=== PATIENT | male | born 2000 ===

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

== ENCOUNTER 2021-12-26 08:06 | Outpatient (REF) | payer MEDICARE, MEDICAID, SELFPAY ==
[2021-12-26 09:23] LABS: Estimated Average Glucose 91 mg/dL; Hemoglobin A1c % 4.8 %
[2021-12-26 09:25] LABS: Cholesterol 99 mg/dL; HDL Cholesterol 35 mg/dL; LDL Cholesterol Calculated 54 mg/dl; Triglycerides 51 mg/dL
== END 2021-12-26 08:07 | disposition home or self-care (01) ==
LOC: HO.LAB 08:06
PROVIDERS: PCP Physician Assistant; Visit Provider Psychiatry & Neurology Psychiatry
DX: Z79.899 Other long term (current) drug therapy (principal)
CPT/HCPCS: 36415; 80061; 83036

== ENCOUNTER 2022-04-27 10:04 | Emergency (ER) | payer MEDICARE, MEDICAID, SELFPAY ==
[2022-04-27 10:10] VITALS: BP 125/64; PULSE 84; RESP 18; TEMP 37.1; O2SAT 97; BMI 25.0
[2022-04-27 10:32] LABS: IDNOW Serial# 08D9AD1C; Strep A Nucleic Acid Negative (Negative)
--- NOTE | 2022-04-27 10:37 | ED_ITS ---
HPI - General Adult General Chief complaint: General Medical Stated complaint: Diff swallowing Time Seen by Provider: 04/27/22 10:21 Source: patient Mode of arrival: ambulatory History of Present Illness HPI narrative: 21-year-old male with no significant past medical history presenting to the ED complaining of sore throat and painful swallowing x2 weeks with suspected tonsil stones. Patient states he has been picking at tonsil stones to extract them. Reports associated chills. Denies fever, inability/difficulty swallowing, ear pain, cough, SOB Onset (ago): week(s) Related Data Home Medications Medication Instructions Recorded Confirmed quetiapine 200 mg tablet 200 mg PO BEDTIME 02/26/20 10/04/21 Previous Rx's Medication Instructions Recorded ofloxacin 0.3 % ear drops 10 drp otic (ear) left DAILY 10 10/04/21 days #10 mL amoxicillin 500 mg capsule 500 mg PO BID #14 caps 04/28/22 Allergies Allergy/AdvReac Type Severity Reaction Status Date / Time No Known Allergies Allergy Verified 04/28/22 11:17 Review of Systems Review of Systems: Constitutional: No Fever, No Chills ENT/Mouth: No Ear Pain, No Nasal Congestion, No Sinus Pain, No Hoarseness, + sore throat, No Rhinorrhea, No Swallowing Difficulty Cardiovascular: No Chest Pain, No SOB Respiratory: No Cough, No Sputum Gastrointestinal: No Nausea, No Vomiting, No Diarrhea, No Constipation, No Abdominal pain Musculoskeletal: No joint pain, No Myalgias, No Joint Swelling Skin: No Skin Lesions, No rash Neuro: No Weakness Yes all other systems are reviewed and are negative Constitutional: Constitutional: Reports as per [facility] Past Medical History Attestation statement: The following information was validated with the patient. Medical History No known health problems Surgical History No pertinent past surgical history Family History Family History Father No problems noted. Social History Social History Household Members: Family Patient Tobacco Use Status: Never used Tobacco e-Cigarette/Vaping Use: Never Used Physical Exam ED Vital Signs: Vital Signs - 24 hr 04/27/22 10:10 Temperature 98.8 F Pulse Rate 84 Respiratory Rate 18 Blood Pressure 125/64 Pulse Oximetry 97 Oxygen Delivery Method Room Air BMI result Body Mass Index 25.0 Const General: cooperative, healthy appearing and no acute distress Orientation/consciousness: patient oriented x3 Limitations: no limitations HENMT Head: Yes normal to inspection and Yes atraumatic Ears: hearing grossly normal bilaterally, external ears normal, TM's normal bilaterally and mastoids normal General nose exam: Normal external nose present Face and sinus: Yes normal facial exam Mouth: Normal oral and palatal mucosa present Throat: Yes posterior oropharynx normal, Yes tonsils normal, Yes uvula midline, No abnormal tonsil, No peritonsillar mass, No uvula laterally displaced and No uvular edema Eyes General: appearance normal, both eyes and all related structures EOM: EOMs intact bilaterally Neck Neck: Yes normal visual inspection, Yes full ROM, Yes no lymphadenopathy and Yes no meningeal signs Resp Effort & Inspection: normal respiratory effort, no grunting, not labored, no respiratory distress and no stridor Cardio Rate: regular rate Heart sounds: S1 normal heart sound present and S2 normal heart sound present Skin Rashes: no rashes Wounds: no wounds Neuro General: patient oriented x3, tone normal and no meningeal signs Gait exam (Neuro): Normal gait present Extrem General: Yes normal to inspection Course Course Course Narrative: Results discussed with patient including worrisome signs and symptoms and strict return precautions, and when to return to the emergency department. They verbalized understanding and feel safe for discharge at this time. Medical Decision Making Medical Decision Making [facility] Narrative: 21-year-old male with no significant past medical history presenting to the ED complaining of sore throat and painful swallowing x2 weeks with suspected tonsil stones. On exam vital signs stable, NAD, nontoxic appearing, oropharynx WNL, tonsils without noted erythema, exudate, or tonsil stones. Uvula midline. Co ncern for pharyngitis vs previous tonsil stones. 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 Differential Diagnosis Differential Diagnoses: The differential diagnosis associated with the presentation includes As above Admission/Observation Consideration of admission/observation: Escalation of care including admission/observation considered Lab Data MDM Lab Attestation statement: I reviewed the patient's lab results. Labs: Lab Results 04/27/22 Range/Units 10:17 S. pyogenes GrpA JACQUES Negative (Negative) Radiology Impression Discussion of test interpretation with radiology: I have reviewed the radiologist's reading. External Record Review External record reviewed: Inpatient record, Office record, Outpatient record, Prior outpatient labs, Prior outpatient radiology, Primary care record and Outside ED record Discharge Plan Discharge Clinical Impression: Pharyngitis Patient Disposition: Home, Self-Care Instructions: Pharyngitis (ED) Additional Instructions: You tested negative for strep throat There is no appreciable tonsil stones today Follow up with your doctor and ENT as needed If symptoms persist or worsening of oral swelling, difficulty or inability to swallow return to the ED Prescriptions: No Action quetiapine 200 mg tablet 200 mg PO BEDTIME ofloxacin 0.3 % drops 10 drp otic (ear) left DAILY 10 Days Qty: 10 0RF amoxicillin 500 mg capsule 500 mg PO BID Qty: 14 0RF Referrals: Frantz Buchanan [Physician] - Interventions: ED Discharge Assessment Last Done: 04/27/22 11:21 Discharge Date/Time: 04/27/22 11:21
== END 2022-04-27 11:21 | disposition home or self-care (01) ==
PROVIDERS: Emergency Provider Student in an Organized Health Care Education/Training Program
DX: J02.9 Acute pharyngitis, unspecified (principal)
CPT/HCPCS: 36415; 87651; 99282; 99283

== ENCOUNTER 2022-12-15 08:57 | Outpatient (AMB) | payer MEDICARE, MEDICAID, SELFPAY ==
--- NOTE | 2022-12-15 08:59 | A.OFFPC_ITS ---
Vital Signs 12/15/22 09:01 Height 5 ft 10 in Weight 159 lb BMI 22.8 BP 120/80 Blood Pressure Location Rt brachial Position Sitting Pulse 102 H Pulse Source Pulse Oximeter Pulse Oximetry (%) 98 Oxygen Delivery Method Room Air Intake Visit Reasons: [employer]WMEMBER- requesting physical Intake Note: Patient is a new patient here to establish care for physical. Transferring care from Dr Khushbu Marx. Medical records have not been requested and have not received. Seed Core Operator Required: No Apprentice Technician: Present Accompanied by: Father Allergies No Known Allergies Allergy (Verified 12/15/22 09:18) Medication List - Last Reconciled 12/15/22 by MARCIANO Enciso quetiapine 200 mg PO BEDTIME Tobacco use date assessed: 12/15/22 Dental Screening Dental Screen Date: 12/15/22 Did you have a dental visit in the last 12 months?: Yes Did you have a dental problem in the last 6 months where you did not have access to dental care?: No Was dental information given to patient?: Patient has dentist HPI [employer]ISS[employer]WMEMBER- requesting physical HPI Details Patient is a 22-year-old male who presents today for physical exam as a new patient. Previous PCP Dr. Herrera with [facility], last visit about 1 year ago. Patient is accompanied by his father. Medical history significant for insomnia which is followed by Psychiatry and counseling at [facility]. Dentist up-to-date. Patient reports eye exam 2 years ago. Due for tetanus vaccine. No concerns. [facility] Medical History Acute erythematous tonsillitis Acute infective otitis externa of left ear No known health problems Surgical History No pertinent past surgical history Family History Father No problems noted. Social History Household Members: Family Housing: Apartment Alcohol intake: never Patient Tobacco Use Status: Never used Tobacco e-Cigarette/Vaping Use: Never Used Second Hand Smoke Exposure: No service: No Current occupational status: unemployed Cognitive needs: No Hearing needs: No Vision needs: No Questionnaire PHQ-9 Over the last 2 weeks, how often have you been bothered by any of the following problems? 1. Little interest or pleasure in doing things: not at all 2. Feeling down, depressed, or hopeless: not at all 3. Trouble falling or staying asleep, or sleeping too much: not at all 4. Feeling tired or having little energy: not at all 5. Poor appetite or overeating: not at all 6. Feeling bad about yourself - or that you are a failure or have let yourself or your family down: not at all 7. Trouble concentrating on things, such as reading the newspaper or watching television: not at all 8. Moving or speaking so slowly that other people could have noticed. Or the opposite - being so fidgety or restless that you have been moving around a lot more than usual: not at all 9. Thoughts that you would be better off or of hurting yourself in some way: not at all Total score: 0 Depression Screening Interpretation: Negative Depression Screening Done: Yes 15110 - PHQ-9 Billing: Yes Source: Developed by Drs. Ja Sellers, Janice Herrera, Domingo Burris and colleagues, with an educational pippa from [employer]. Thrive Questionnaire Date Thrive assessed: 12/15/22 I am a: Patient What is your living situation today?: I have a steady place to live Within the past 12 months, did the food you bought not last and you didn't have the money to get more?: Never true Within the past 12 months, did you worry whether your food would run out before you got money to buy more?: Never true Do you have trouble paying for medicines?: No Do you have trouble getting transportation to medical appointments?: No Do you have trouble paying your heating and electricity bill?: No Do you have trouble taking care of your child, family member or friend?: No Do you have trouble with day-to-day activities such as bathing, preparing meals, shopping, managing finances, etc.?: No Are you currently unemployed and looking for a job?: No Are you interested in more education?: No Currently or been in a relationship where the following occur: no concerns reported AUDIT C Alcohol Use Questionnaire (AUDIT-C) 1. How often do you have a drink containing alcohol?: Never Total Score: 0 Score Reviewed/Action Taken: No MAMADOU-7 AMB Questionnaire MAMADOU-7 Date MAMADOU - 7 assessed: 12/15/22 Feeling nervous, anxious, or on edge: 0 = Not at all Not being able to stop or control worryin = Not at all Worrying too much about different things: 0 = Not at all Trouble relaxin = Not at all Being so restless that it is hard to sit still: 0 = Not at all Becoming easily annoyed or irritable: 0 = Not at all Feeling afraid as if something awful might happen: 0 = Not at all Total MAMADOU-7 score (0-4 normal; 5-9 mild; 10-14 moderate; 15-21 severe): 0 Source: Developed by Drs. Ja Sellers, Janice Herrera, Domingo Burris and colleagues, with an educational pippa from [employer]. MAMADOU-7 Assessment Billing MAMADOU-7 Assessment Tool: MAMADOU-7 Assessment 47595 Review of Systems Const Denies body aches, Denies chills, Denies fever(s) and Denies headache(s) Eyes Denies change in vision ENT Denies dizziness, Denies otalgia, Denies headache(s), Denies nasal discharge, Denies sinus pain and Denies sore throat Card Denies chest pain, Denies edema, Denies lightheadedness and Denies dyspnea Resp Denies cough, Denies dyspnea and Denies wheezing GI Denies abdominal pain, Denies constipation, Denies diarrhea, Denies nausea and Denies vomiting Denies dysuria Musc Denies myalgias Skin/Breast Denies rash Neuro Denies dizziness and Denies headache(s) Aller/Immun Denies wheezing Physical exam (Primary Care) Vital Signs: Last Vital Signs Pulse 102 H 12/15/22 09:01 BP 120/80 12/15/22 09:01 Pulse Ox 98 12/15/22 09:01 Oxygen Delivery Method Room Air 12/15/22 09:01 BMI result Body Mass Index 22.8 Tobacco/Smoking Status: Tobacco use Status Tobacco use date assessed 12/15/22 12/15/22 09:09 Patient Tobacco Use Status Never used Tobacco 12/15/22 09:09 e-Cigarette/Vaping Use Never Used 12/15/22 09:09 PHQ-9: PHQ-9 Score PHQ-9: Total score 0 12/15/22 09:31 Depression Screening Interpretation: Negative Thrive Assessment: Date of Thrive Assessment Date Thrive assessed 12/15/22 12/15/22 09:09 Currently or been in a relationship where the following occur: no concerns reported Const General: cooperative and no acute distress Orientation/consciousness: patient oriented x3 HENMT Head: Yes normocephalic and Yes atraumatic Ears: TM's normal bilaterally Face and sinus: Yes sinuses nontender Mouth: oropharynx normal and moist mucous membranes Throat: Yes posterior oropharynx normal Eyes General: appearance normal, both eyes and all related structures Pupils: Equal, round and reactive pupils present EOM: EOMs intact bilaterally Neck Neck: Yes normal visual inspection, Yes full ROM and Yes no lymphadenopathy Thyroid: Thyroid normal Resp Effort & Inspection: normal respiratory effort and able to speak in complete sentences Auscultation: clear to auscultation bilaterally, no crackles, no rales, no rhonchi and no wheezes Cardio Rate: regular rate Rhythm: regular rhythm Heart sounds: S1 normal heart sound present, S2 normal heart sound present and no murmurs GI Palpation (GI): Soft to palpation, not firm, nontender, no guarding, not rigid and no hepatosplenomegaly Auscultation: normal bowel sounds General: No CVA tenderness Back/Spine/Pelvis Back: No CVA tenderness Skin General skin exam: no rashes or lesions noted Neuro General: patient oriented x3 Cranial nerves: Yes Equal, round and reactive pupils present Gait exam (Neuro): Normal gait present Extrem General: Yes full ROM and No edema Office Procedures Flu Questionnaire Does the patient have a severe egg allergy?: No Does the patient have severe life threatening allergies?: No Does the patient have a fever or illness today?: No Has the patient ever had Guillain-[place] Syndrome?: No Has the patient ever had any past reaction to a flu shot?: No Immunizations flu vacc [id number] 6mos up(PF) 60 mcg(15 mcgx4)/0.5 mL IM syringe Performing Provider: MARCIANO Enciso Performing Location: [facility] Adult Primary [facility] Administered by: RAGINI Nava on 12/15/22 09:14 Dose Route Admin Location Dispensed Lot Number Expiration Date NDC Phd Intern 0.5 mL IM Left Deltoid 0.5 mL [id number] 08/05/23 67660-480-78 GLAXOSMITHKLINE VIS Given Date VIS Provided VIS Publication Date 12/15/22 Single Vaccine 20 Eligibility Eligibility Date Funding Source Not VFC Eligible 12/15/22 Private Adacel(Tdap Adolesn/Adult)(PF) 2 Lf-(2.5-5-3-5)-5 Lf/0.5 mL IM syringe Performing Provider: MARCIANO Enciso [facility] Administered by: RAGINI Nava on 12/15/22 09:34 Dose Route Admin Location Dispensed Lot Number Expiration Date NDC Phd Intern 0.5 mL IM Right Deltoid 0.5 mL [id number] 01/10/25 [id number] GLAXOSMITHKLINE VIS Given Date VIS Provided VIS Publication Date 12/15/22 Single Vaccine 20 Eligibility Eligibility Date Funding Source Not VFC Eligible 12/15/22 State funds Assessment and Plan Assessment & Plan (1) Adult general medical exam: Code(s): Z00.00 - Encounter for general adult medical examination without abnormal findings Plan: Repeat in 1 year Blood work ordered (2) Insomnia: Code(s): G47.00 - Insomnia, unspecified Plan: On Seroquel at bedtime which is prescribed by Psychiatry at [facility] Also has counseling Orders: Orders Vitamin D 25-OH Total Today Z00.00 - Encounter for general adult medical examination without abnormal findings Influenza [id number] Immunization Today Z23 - Encounter for immunization TDaP State Immunization Today Z00.00 - Encounter for general adult medical examination without abnormal findings, Z23 - Encounter for immunization TSH reflex Free T4 Today Z00.00 - Encounter for general adult medical examination without abnormal findings Comprehensive Met. Panel Today Z00.00 - Encounter for general adult medical examination without abnormal findings Complete Blood Count Auto Diff Today Z00.00 - Encounter for general adult me dical examination without abnormal findings Coding Level of Care Code New Pt Prev Care 18-39yr(06108 Diagnoses Adult general medical exam Z00.00 Insomnia G47.00 Additional Codes MAMADOU-7 Assessment Billing - MAMADOU-7 Assessment Tool: MAMADOU-7 Assessment [id number] ([id number])
[2022-12-15 09:01] VITALS: BP 120/80; PULSE 102; O2SAT 98; BMI 22.8
== END 2022-12-15 09:37 | disposition home or self-care (01) ==
PROVIDERS: PCP Physician Assistant; Visit Provider Nurse Practitioner Family
DX: Z00.00 Encounter for general adult medical examination without abnormal findings (principal); Z23 Encounter for immunization; G47.00 Insomnia, unspecified
CPT/HCPCS: 90471; 90686; 90715; 99385

== ENCOUNTER 2023-03-27 14:04 | Outpatient (AMB) | payer MEDICARE, MEDICAID, SELFPAY ==
[2023-03-27 14:05] VITALS: BP 112/68; PULSE 84; O2SAT 98; BMI 24.0
--- NOTE | 2023-03-27 14:05 | A.OFFPC_ITS ---
Vital Signs 3 03/27/23 14:05 Height 5 ft 10 in Weight 167 lb BMI 24.0 BP 112/68 Blood Pressure Location Lt brachial Position Sitting Pulse 84 Pulse Source Pulse Oximeter Pulse Oximetry (%) 98 Oxygen Delivery Method Room Air Intake Visit Reasons: remove jose l from head Customer Service Security Officer Required: No Accompanied by: Friend Allergies No Known Allergies Allergy (Verified 03/27/23 14:26) Medication List - Last Reconciled 03/27/23 by Edson Shaw PA-C No Known Home Meds Tobacco use date assessed: 03/27/23 Dental Screening Dental Screen Date: 03/27/23 Did you have a dental visit in the last 12 months?: Yes Did you have a dental problem in the last 6 months where you did not have access to dental care?: No Was dental information given to patient?: Patient has dentist HPI remove jose l from head 2 HPI0 Details Patient is a 22-year-old male here today for a ER follow-up visit. He sustained a laceration over his head requiring a to jose l. Otherwise denies any headaches, vision issues or nausea or vomiting. [facility] Medical History Acute erythematous tonsillitis Acute infective otitis externa of left ear No known health problems Surgical History No pertinent past surgical history Family History Father No problems noted. Social History Household Members: Family Housing: Apartment Alcohol intake: never Patient Tobacco Use Status: Never used Tobacco e-Cigarette/Vaping Use: Never Used Second Hand Smoke Exposure: No service: No Current occupational status: unemployed Cognitive needs: No Hearing needs: No Vision needs: No Questionnaire PHQ-9 Over the last 2 weeks, how often have you been bothered by any of the following problems? 1. Little interest or pleasure in doing things: not at all 2. Feeling down, depressed, or hopeless: not at all 3. Trouble falling or staying asleep, or sleeping too much: not at all 4. Feeling tired or having little energy: not at all 5. Poor appetite or overeating: not at all 6. Feeling bad about yourself - or that you are a failure or have let yourself or your family down: not at all 7. Trouble concentrating on things, such as reading the newspaper or watching television: not at all 8. Moving or speaking so slowly that other people could have noticed. Or the opposite - being so fidgety or restless that you have been moving around a lot more than usual: not at all 9. Thoughts that you would be better off or of hurting yourself in some way: not at all Total score: 0 Depression Screening Interpretation: Negative Depression Screening Done: Yes 75201 - PHQ-9 Billing: Yes Source: Developed by Drs. Ja Sellers, Janice Herrera, Domingo Burris and colleagues, with an educational pippa from [employer]. Thrive Questionnaire Date Thrive assessed: 03/27/23 I am a: Patient What is your living situation today?: I have a steady place to live Within the past 12 months, did the food you bought not last and you didn't have the money to get more?: Never true Within the past 12 months, did you worry whether your food would run out before you got money to buy more?: Never true Do you have trouble paying for medicines?: No Do you have trouble getting transportation to medical appointments?: No Do you have trouble paying your heating and electricity bill?: No Do you have trouble taking care of your child, family member or friend?: No Do you have trouble with day-to-day activities such as bathing, preparing meals, shopping, managing finances, etc.?: No Are you currently unemployed and looking for a job?: No Are you interested in more education?: No Please select the resources that you would like help with: None Currently or been in a relationship where the following occur: no concerns reported THRIVE Score: 0 AUDIT C Alcohol Use Questionnaire (AUDIT-C) 1. How often do you have a drink containing alcohol?: Never 3. How often do you have six or more drinks on one occasion?: Never Total Score: 0 MAMADOU-7 AMB Questionnaire MAMADOU-7 Date MAMADOU - 7 assessed: 03/27/23 Feeling nervous, anxious, or on edge: 0 = Not at all Not being able to stop or control worryin = Not at all Worrying too much about different things: 0 = Not at all Trouble relaxin = Not at all Being so restless that it is hard to sit still: 0 = Not at all Becoming easily annoyed or irritable: 0 = Not at all Feeling afraid as if something awful might happen: 0 = Not at all Total MAMADOU-7 score (0-4 normal; 5-9 mild; 10-14 moderate; 15-21 severe): 0 Source: Developed by Drs. Ja Sellers, Janice Herrera, Domingo Burris and colleagues, with an educational pippa from [employer]. MAMADOU-7 Assessment Billing MAMADOU-7 Assessment Tool: MAMADOU-7 Assessment 75384 Review of Systems Const Denies headache(s) Eyes Denies loss of vision ENT Denies vertigo, Denies dizziness, Denies headache(s) and Denies sore throat Card Denies chest pain, Denies leg edema and Denies lightheadedness Resp Denies cough, Denies hemoptysis and Denies wheezing GI Denies abdominal pain, Denies melena, Denies constipation, Denies diarrhea and Denies vomiting Denies dysuria, Denies urinary frequency and Denies urinary urgency Musc Denies arthralgias, Denies joint swelling, Denies numbness and Denies tingling Neuro Denies Abnormal speech present, Denies behavioral changes, Denies vertigo, Denies dizziness, Denies headache(s), Denies loss of vision, Denies memory loss, Denies numbness and Denies tingling Psych Denies anxiety, Denies behavioral changes, Denies depression, Denies memory loss and Denies panic attacks Marky/Lymph Denies easy bleeding and Denies easy bruising Aller/Immun Denies wheezing Physical exam (Primary Care) Vital Signs: Last Vital Signs Pulse 84 03/27/23 14:05 BP 112/68 03/27/23 14:05 Pulse Ox 98 03/27/23 14:05 Oxygen Delivery Method Room Air 03/27/23 14:05 BMI result Body Mass Index 24.0 Tobacco/Smoking Status: Tobacco use Status Tobacco use date assessed 03/27/23 03/27/23 14:13 Patient Tobacco Use Status Never used Tobacco 03/27/23 14:07 e-Cigarette/Vaping Use Never Used 03/27/23 14:07 PHQ-9: PHQ-9 Score PHQ-9: Total score 0 03/27/23 14:08 Depression Screening Interpretation: Negative Thrive Assessment: Date of Thrive Assessment Date Thrive assessed 03/27/23 03/27/23 14:08 Currently or been in a relationship where the following occur: no concerns reported Const General: healthy appearing, no acute distress, alert and awake Nutritional Appearance: well nourished Orientation/consciousness: oriented to person, oriented to place and oriented to time [facility] Head images: 2 1. TWO JOSE L NOTED- REMOVED WITHOUT COMPLICATION Ears: TM's normal bilaterally General nose exam: Normal nasal mucous membranes and turbinates present Eyes Conjunctivae: conjunctivae normal Sclerae: sclerae normal Pupils: Equal, round and reactive pupils present Neck Neck: Yes no lymphadenopathy and Yes no JVD Thyroid: Thyroid normal Carotids: no bruits Resp Effort & Inspection: normal respiratory effort and not tachypneic Auscultation: no crackles, no rales, no rhonchi and no wheezes Cardio Rate: regular rate Rhythm: regular rhythm Heart sounds: no murmurs and normal S1 and S2 GI Palpation (GI): Soft to palpation, nontender, no hepatomegaly and no splenomegaly Auscultation: normal bowel sounds Skin General skin exam: no rashes or lesions noted and dry skin Neuro General: oriented to person, oriented to place and oriented to time Cranial nerves: Yes Equal, round and reactive pupils present Speech: No Abnormal speech present Gait exam (Neuro): Normal gait present Motor exam (neuro): no tremor noted Extrem Right upper extremity: full ROM Left upper extremity: full ROM Right lower extremity: full ROM; no edema Left lower extremity: full ROM; no edema Psych Mental Status: mental status grossly normal Speech and movement: Normal speech and movement present Affect: normal affect Attitude: cooperative Thought process: Normal thought process present Assessment and Plan Assessment & Plan (1) Removal of jose l: Code(s): Z48.02 - Encounter for removal of sutures Plan: Two jose l removed from patient's scalp without any bleeding. (2) Laceration of head: Code(s): S01.91XA - Laceration without foreign body of unspecified part of head, initial encounter Qualifiers: Encounter type: subsequent encounter Location of open wound of head: s calp Foreign body presence: without foreign body Qualified Code(s): S01.01XD - Laceration without foreign body of scalp, subsequent encounter (3) Screening for diabetes mellitus (DM): Code(s): Z13.1 - Encounter for screening for diabetes mellitus Orders: Orders 2 Comprehensive [place]. Panel Fast Today Z13.1 - Encounter for screening for diabetes mellitus Coding Level of Care Code Est Pt Level 3 (87200) Diagnoses Removal of jose l Z48.02 Laceration of scalp without foreign body, subsequent encounter S01.01XD Encounter type: subsequent encounter Location of open wound of head: scalp Foreign body presence: without foreign body Screening for diabetes mellitus (DM) Z13.1 Additional Codes MAMADOU-7 Assessment Billing - MAMADOU-7 Assessment Tool: MAMADOU-7 Assessment 57022 ([id number])
== END 2023-03-27 14:33 | disposition home or self-care (01) ==
PROVIDERS: PCP Physician Assistant; Visit Provider Physician Assistant
DX: S01.01XA Laceration without foreign body of scalp, initial encounter (principal); Z48.02 Encounter for removal of sutures; Z13.1 Encounter for screening for diabetes mellitus
CPT/HCPCS: 15853; 99213

== ENCOUNTER 2023-06-15 09:05 | Outpatient (AMB) | payer MEDICARE, MEDICAID, SELFPAY ==
[2023-06-15 09:17] VITALS: BP 124/80; PULSE 101; TEMP 36.5; O2SAT 98; BMI 26.3
--- NOTE | 2023-06-15 09:17 | AM.OFFWIN_ITS ---
Intake Vital Signs 06/15/23 09:17 Height 5 ft 10 in Weight 183 lb 6 oz BMI 26.3 BP 124/80 Blood Pressure Location Lt brachial Position Sitting Pulse 101 H Pulse Source Pulse Oximeter Temp 97.7 F Temp Source Temporal Artery Scan Pulse Oximetry (%) 98 Oxygen Delivery Method Room Air Intake Visit Reasons: EST/ ear/throat pain ([phone]) Intake Note: pt is here today for ear throat pain started 4 days ago Patient Tobacco Use Status: Never used Tobacco Allergies No Known Allergies Allergy (Verified 06/15/23 09:31) Do you need a note to return to daycare/school/sports/work: No HPI HPI Comments History of Present Illness Details This is a 22-year-old male with past medical history of insomnia presenting for evaluation of left ear pain that started 5 days ago followed by a sore throat. Patient reports subjective fevers only and has not taken any medication for treatment of his discomfort. [facility] Medical History Acute erythematous tonsillitis Acute infective otitis externa of left ear No known health problems Surgical History No pertinent past surgical history Family History Father No problems noted. Social History Household Members: Family Housing: Apartment Alcohol intake: never Patient Tobacco Use Status: Never used Tobacco e-Cigarette/Vaping Use: Never Used Second Hand Smoke Exposure: No service: No Current occupational status: unemployed Cognitive needs: No Hearing needs: No Vision needs: No Review of Systems Const All systems reviewed & are unremarkable except as noted in HPI and below Denies chills and Reports fever(s) (subjective) Eyes Reports no additional complaints ENT Reports otalgia (left), Denies sinus pain and Reports sore throat Card Reports no additional complaints Resp Reports no additional complaints Psych Reports no additional complaints Physical Exam Vital Signs: Last Vital Signs Temp 97.7 F 06/15/23 09:17 Pulse 101 H 06/15/23 09:17 BP 124/80 06/15/23 09:17 Pulse Ox 98 06/15/23 09:17 Oxygen Delivery Method Room Air 06/15/23 09:17 BMI result Body Mass Index 26.3 Patient is afebrile Const General: cooperative, healthy appearing, comfortable, no acute distress, well developed, alert and awake Nutritional Appearance: average body habitus Orientation/consciousness: patient oriented x3 Limitations: no limitations HEENT Head: Yes normal to inspection Ears: hearing grossly normal bilaterally, external ears normal, TM's abnormal bilaterally (mild erythema right TM; left TM erythematous, bulging, moderate fluid level), EAC's normal and mastoids normal General nose exam: Normal external nose present Face and sinus: Yes normal facial exam and Yes sinuses nontender Mouth: Normal oral and palatal mucosa present and moist mucous membranes Throat: Yes posterior oropharynx normal (There is no erythema, edema or exudates of the posterior oropharynx) and Yes postnasal drainage Eyes Alignment and Position: alignment normal Periorbital: periorbital findings normal Eyelids: Yes eyelids normal Conjunctivae: conjunctival abnormal bilateral conjunctival injection diffuse Pupils: Equal, round and reactive pupils present EOM: EOMs intact bilaterally Neck Lymphatic: no lymphadenopathy noted Resp Effort & Inspection: normal respiratory effort, no audible wheezes and no cough Auscultation: wheezes (expiratory wheeze right base) Cardio Rate: regular rate (92 bpm) Rhythm: regular rhythm Skin General skin exam: no rashes or lesions noted Neuro General: patient oriented x3 Cranial nerves: Yes Equal, round and reactive pupils present Psych Appearance: grossly normal Mental Status: mental status grossly normal Insight: Good insight present (Psych) Judgement: Good judgement present (Psych) Results AMB Rapid Strep AMB Rapid Strep Negative Last Edit by Jessica Barbosa CMA on 06/15/23 09:42 Results Reviewed Results Reviewed: Laboratory Last Values Strep Scn Rapid Clinic Negative 06/15/23 09:41 Assessment & Plan Assessment & Plan (1) Otitis media of left ear: Comment: Patient is seen and evaluated with his mother present. Rapid strep test is negative. Patient will be discharged home with Augmentin. Code(s): H66.92 - Otitis media, unspecified, left ear Qualifiers: Otitis media type: unspecified Qualified Code(s): H66.92 - Otitis media, unspecified, left ear Plan: Augmentin 500 mg b.i.d. x7 days. Ibuprofen or Tylenol only as needed for discomfort. Orders: Orders AMB Rapid Strep Screen Today Nataliya Padilla NP Z13.9 - Encounter for screening, unspecified Medications: New amoxicillin-pot clavulanate 500-125 mg (Augmentin) 1 tab PO BID 14 tabs 0RF Agustina Manuel PA-C Coding Level of Care Code Est Pt Level 3 (62906) Diagnoses Left otitis media, unspecified otitis media type H66.92 Otitis media type: unspecified Time Spent (min) 20
== END 2023-06-15 11:12 | disposition home or self-care (01) ==
PROVIDERS: PCP Physician Assistant; Visit Provider Physician Assistant
DX: H66.92 Otitis media, unspecified, left ear (principal); J02.9 Acute pharyngitis, unspecified
CPT/HCPCS: 87880; 99213

== ENCOUNTER → 2023-08-02 12:58 | Outpatient (AMB) | payer MEDICARE, MEDICAID, SELFPAY ==
[2023-08-02 12:59] VITALS: BP 114/72; PULSE 87; O2SAT 98; BMI 26.7
--- NOTE | 2023-08-02 12:59 | MHC.PC.OV ---
Vital Signs 08/02/23 12:59 Height 5 ft 10 in Weight 185 lb 13.595 oz BMI 26.7 BP 114/72 Blood Pressure Location Lt brachial Position Sitting Pulse 87 Pulse Source Pulse Oximeter Pulse Oximetry (%) 98 Oxygen Delivery Method Room Air Intake Visit Reasons: ear pain Intake Note: pt c/o left ear ache, discharge and itchy X1 month with no relief Statistical Clerk Required: No Allergies No Known Allergies Allergy (Verified 08/02/23 13:30) Medication List - Last Reconciled 08/02/23 by Marian Palafox PA-C ciprofloxacin-dexamethasone 0.3-0.1 % 4 drps otic (ears) BID 7 days doxycycline hyclate 100 mg PO BID 10 days quetiapine 200 mg PO BEDTIME Tobacco use date assessed: 03/27/23 Dental Screening Dental Screen Date: 03/27/23 HPI ear pain HPI Details 22 year old male with no pertinent medical history last seen in our office by SIN March 2023 coming in for a sick visit. Patient was seen in urgent care June 2023 for ear pain and diagnosed with otitis media and given Augmentin. Patient reporting excessive itching and drainage initially from the left ear but now the drainage is in both ears. Patient reports mild pain but the itchiness and drainage are the most bothersome. Shortly after taking the antibiotics the itching returned in both ears and draining which is usually green. Patient has not been swimming in lakes, pools or hot tubs. The left ear is also having decreased hearing. Denies cough, fevers, runny nose, sore throat or body aches. Denies any seasonal allergies. [facility] Medical History Acute erythematous tonsillitis Acute infective otitis externa of left ear No known health problems Surgical History No pertinent past surgical history Family History Father No problems noted. Social History Household Members: Family Housing: Apartment Alcohol intake: never Patient Tobacco Use Status: Never used Tobacco e-Cigarette/Vaping Use: Never Used Second Hand Smoke Exposure: No service: No Current occupational status: unemployed Cognitive needs: No Hearing needs: No Vision needs: No Questionnaire Thrive Questionnaire Date Thrive assessed: 03/27/23 I am a: Patient What is your living situation today?: I have a steady place to live Within the past 12 months, did the food you bought not last and you didn't have the money to get more?: Never true Within the past 12 months, did you worry whether your food would run out before you got money to buy more?: Never true Do you have trouble paying for medicines?: No Do you have trouble getting transportation to medical appointments?: No Do you have trouble paying your heating and electricity bill?: No Do you have trouble taking care of your child, family member or friend?: No Do you have trouble with day-to-day activities such as bathing, preparing meals, shopping, managing finances, etc.?: No Are you currently unemployed and looking for a job?: No Are you interested in more education?: No Please select the resources that you would like help with: None THRIVE Score: 0 AUDIT C Alcohol Use Questionnaire (AUDIT-C) 1. How often do you have a drink containing alcohol?: Never 3. How often do you have six or more drinks on one occasion?: Never Total Score: 0 MAMADOU-7 AMB Questionnaire MAMADOU-7 Date MAMADOU - 7 assessed: 03/27/23 Source: Developed by Drs. Ja Sellers, Janice Herrera, Domingo Burris and colleagues, with an educational pippa from [employer]. Review of Systems Const Denies body aches, Denies chills and Denies fever(s) Eyes Reports no additional complaints and Denies itchy eyes ENT Details: yellow/green drainage in bilateral ears with itchiness and mild pain. Decreased hearing in the left ear. Denies throat swelling Card Reports no additional complaints Resp Reports no additional complaints and Denies cough GI Reports no additional complaints Musc Denies myalgias Neuro Reports no additional complaints Aller/Immun Denies itchy eyes, Denies seasonal rhinorrhea and Denies throat swelling Physical exam (Primary Care) Vital Signs: Last Vital Signs Pulse 87 08/02/23 12:59 BP 114/72 08/02/23 12:59 Pulse Ox 98 08/02/23 12:59 Oxygen Delivery Method Room Air 08/02/23 12:59 BMI result Body Mass Index 26.7 Tobacco/Smoking Status: Tobacco use Status Tobacco use date assessed 03/27/23 08/02/23 13:00 Patient Tobacco Use Status Never used Tobacco 08/02/23 13:00 e-Cigarette/Vaping Use Never Used 08/02/23 13:00 Thrive Assessment: Date of Thrive Assessment Date Thrive assessed 03/27/23 08/02/23 13:00 Const General: cooperative, healthy appearing, comfortable and no acute distress Nutritional Appearance: average body habitus Orientation/consciousness: patient oriented x3 Limitations: no limitations HENMT Other: Crusting drainage in the left ear canal and on the external ear. Right TM and ear canal are erythematous. Left ear canal is erythematous with purulent fluid behind left TM. Mild tenderness to left tragus and no tenderness to pinna or around the mastoid bilaterally. Head: Yes normal to inspection Ears: hearing grossly normal bilaterally General nose exam: Normal external nose present Face and sinus: Yes normal facial exam Mouth: Normal oral and palatal mucosa present and oropharynx normal Neck Neck: Yes normal visual inspection Lymphatic: no lymphadenopathy noted Resp Effort & Inspection: normal respiratory effort Auscultation: clear to auscultation bilaterally, no crackles, no rales, no rhonchi and no wheezes Cardio Rate: regular rate Rhythm: regular rhythm Heart sounds: S1 normal heart sound present and S2 normal heart sound present Neuro General: patient oriented x3 Psych Mental Status: mental status grossly normal Speech and movement: Normal speech and movement present Affect: normal affect Attitude: cooperative Assessment and Plan Assessment & Plan (1) Otitis media: Code(s): H66.90 - Otitis media, unspecified, unspecified ear Qualifiers: Chronicity: acute Laterality: bilateral Otitis media type: suppurative Recurrence: not specified as recurrent Spontaneous tympanic membrane rupture: without spontaneous rupture Qualified Code(s): H66.003 - Acute suppurative otitis media without spontaneous rupture of ear drum, bilateral Plan: Bilateral ears show evidence of middle ear infection. Has previously failed a course of Augmentin and will trial Doxycycline. Counseled on side effects of Doxycycline and patient is aware to avoid the sun while taking this medication. Advised to take Tylenol and Ibuprofen as needed for pain. Patient will reach out in 3-4 days if symptoms are not improving and otherwise will follow up as needed. (2) Otitis externa: Code(s): H60.90 - Unspecified otitis externa, unspecified ear Qualifiers: Chronicity: acute Laterality: left Otitis externa type: unspecified type Qualified Code(s): H60.502 - Unspecified acute noninfective otitis externa, left ear Plan: Patient has itching and purulent drainage from the left ear and within in the ear canal. Drainage was visible on physical exam. Prescribed Cipro-Dex drops and patient will follow up if symptoms do not improve. Plan Thank you for allowing me to participate in the care of this patient. I personally spent 30 minutes reviewing, examining and charting on this patient. Medications: New doxycycline hyclate 100 mg PO BID 20 caps 0RF 10 days ciprofloxacin-dexamethasone 0.3-0.1 % 4 drps otic (ears) BID 7 days 7.5 mL 0RF ciprofloxacin-dexamethasone 0.3-0.1 % Instill 4 drops into left ear twice daily for 7 days. 4 drps otic (ears) BID 7.5 mL 0RF 7 days Coding Level of Care Code Est Pt Level 3 (29332) Diagnoses Acute suppurative otitis media of both ears without spontaneous rupture of tympanic membranes, recurrence not specified H66.003 Chronicity: acute Laterality: bilateral Otitis media type: suppurative Recurrence: not specified as recurrent Spontaneous tympanic membrane rupture: without spontaneous rupture Acute otitis externa of left ear, unspecified type H60.502 Chronicity: acute Laterality: left Otitis externa type: unspecified type
== END ==
PROVIDERS: PCP Physician Assistant
DX: H66.003 Acute suppurative otitis media without spontaneous rupture of ear drum, bilateral (principal); H60.502 Unspecified acute noninfective otitis externa, left ear
CPT/HCPCS: 99213

== ENCOUNTER 2023-09-17 09:56 | Outpatient (AMB) | payer MEDICARE, MEDICAID, SELFPAY ==
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
[2023-09-17 10:15] VITALS: BP 140/90; PULSE 100; O2SAT 97; BMI 26.3
== END 2023-09-17 10:56 | disposition home or self-care (01) ==
PROVIDERS: PCP Physician Assistant; Visit Provider Physician Assistant
DX: M79.671 Pain in right foot (principal)
CPT/HCPCS: 99214

== ENCOUNTER 2023-09-17 10:42 | Outpatient (REF) | payer MEDICARE, MEDICAID, SELFPAY ==
--- NOTE | ~2023-09-17 | XR_ITS ---
EXAMINATION: XR FOOT, RIGHT CLINICAL INFORMATION: Right foot pain. COMPARISON: Right foot radiographs dated 05/14/2009. TECHNIQUE: AP, lateral, and oblique views of the right foot. FINDINGS: The bones and soft tissues are normal. No fracture. Alignment is anatomic. Joint spaces are maintained. XR/XR foot RT min 3V IMPRESSION: Unremarkable examination.
== END 2023-09-17 10:43 | disposition home or self-care (01) ==
LOC: HO.HMGCX 10:42
PROVIDERS: PCP Physician Assistant; Visit Provider Physician Assistant
DX: M79.671 Pain in right foot (principal)
CPT/HCPCS: 73630

== ENCOUNTER 2023-12-25 14:51 | Outpatient (REF) | payer MEDICARE, MEDICAID, SELFPAY ==
[2023-12-25 16:31] LABS: Alanine Aminotransferase 12 U/L (0-40); Albumin Level 4.4 g/dL (3.5-5.0); Anion Gap 14 (12-20); Aspartate Amino Transferase 17 U/L (5-37); Bilirubin Total 0.4 mg/dL (0.0-1.0); Blood Urea Nitrogen 10 mg/dL (9-16); Calcium 9.1 mg/dL (8.4-10.2); Carbon Dioxide 26 mmol/L (22-29); Chloride 106 mmol/L (96-108); Estimated Glomerular Filt Rate > 60; Glucose Fasting 103 mg/dL (60-99); Potassium 3.7 mmol/L (3.3-5.1); Sodium 142 mmol/L (135-145)
[2023-12-25 17:22] LABS: Alkaline Phosphatase 45 U/L (39-117)
[2023-12-26 03:43] LABS: Syphilis Screen Nonreactive (Nonreactive)
[2023-12-26 03:54] LABS: HIV AB/AG Nonreactive (Nonreactive); HIV Num 1 0.09 S/CO (0.00-0.99)
[2023-12-26 05:39] LABS: CT PCR NOT DETECTED (Not Detect.); NG PCR NOT DETECTED (Not Detect.)
[2023-12-26 18:19] LABS: Herpes Simplex Type 2 IgG <0.90 index
== END 2023-12-25 14:52 | disposition home or self-care (01) ==
LOC: HO.LAB 14:51
PROVIDERS: PCP Physician Assistant; Visit Provider Physician Assistant
DX: Z11.3 Encounter for screening for infections with a predominantly sexual mode of transmission (principal); Z13.1 Encounter for screening for diabetes mellitus; Z20.2 Contact with and (suspected) exposure to infections with a predominantly sexual mode of transmission
CPT/HCPCS: 80053; 86695; 86696; 86780; 87389; 87491; 87591

== ENCOUNTER 2024-01-23 11:38 | Outpatient (REF) | payer MEDICARE, MEDICAID, SELFPAY ==
[2024-01-23 13:08] LABS: HIV AB/AG Nonreactive (Nonreactive); HIV Num 1 0.08 S/CO (0.00-0.99)
[2024-01-23 13:09] LABS: Syphilis Screen Nonreactive (Nonreactive)
[2024-01-23 13:51] LABS: CT PCR NOT DETECTED (Not Detect.); NG PCR NOT DETECTED (Not Detect.)
== END 2024-01-23 11:39 | disposition home or self-care (01) ==
LOC: HO.LAB 11:38
PROVIDERS: PCP Physician Assistant; Visit Provider Physician Assistant
DX: Z20.2 Contact with and (suspected) exposure to infections with a predominantly sexual mode of transmission (principal); Z11.3 Encounter for screening for infections with a predominantly sexual mode of transmission
CPT/HCPCS: 86780; 87389; 87491; 87591

== ENCOUNTER 2024-03-27 16:39 | Emergency (ER) | payer MEDICARE, MEDICAID, SELFPAY ==
--- NOTE | 2024-03-27 17:36 | ED.GENADULT ---
HPI - General Adult General Stated complaint: sore throat,coughing Related Data Home Medications ?Medication ?Instructions ?Recorded ?Confirmed quetiapine 200 mg tablet 200 mg PO BEDTIME 06/15/23 08/02/23 Previous Rx's ?Medication ?Instructions ?Recorded benzonatate 200 mg capsule 200 mg PO TID PRN cough #14 caps 03/28/24 oseltamivir 75 mg capsule 75 mg PO BID 5 days #10 caps 03/28/24 prednisone 20 mg tablet 40 mg (2 x 20 mg) PO DAILY #10 tabs 03/28/24 Allergies Allergy/AdvReac Type Severity Reaction Status Date / Time No Known Allergies Allergy Verified 03/28/24 08:34 PMFSH Past Medical History Medical History Acute erythematous tonsillitis Acute infective otitis externa of left ear No known health problems Surgical History No pertinent past surgical history Family History Family History Father No problems noted. Social History Social History Household Members: Family Housing: Apartment Alcohol intake: never Patient Tobacco Use Status: Never used Tobacco e-Cigarette/Vaping Use: Never Used Second Hand Smoke Exposure: No service: No Current occupational status: unemployed Cognitive needs: No Hearing needs: No Vision needs: No Discharge Plan Discharge Clinical Impression: Cough Patient Disposition: Left Without Being Seen Interventions: LWBS Worksheet Last Done: 03/27/24 19:35 Discharge Date/Time: 03/27/24 19:37
== END 2024-03-27 19:37 | disposition left against medical advice (07) ==
PROVIDERS: Emergency Provider Internal Medicine; PCP Physician Assistant
DX: J02.9 Acute pharyngitis, unspecified (principal); R05.9 Cough, unspecified

== ENCOUNTER 2024-03-28 08:08 | Outpatient (AMB) | payer MEDICARE, MEDICAID, SELFPAY ==
--- OUTSIDE RECORDS SUMMARY | 2024-03-28 08:12 | XMS_ITS | Clinical Summary ---
Author Organization [employer] Address [address] [place] [address] Care Team Providers Care Web Producer Name Role Phone Unavailable Primary Care Provider Unavailabl e Allergies No known active allergies Medications QUEtiapine (SEROquel) 200 MG tablet Take 1 tablet by mouth every 12 (twelve) hours. 12/07/2020 Active Social History Tobacco Use Types Packs/Day Years Used Date Smoking Tobacco: Never Passive Smoke Exposure: Never Smokeless Tobacco: Never Tobacco Cessation:Counseling Given: Not Answered Alcohol Use Standard Drinks/Week Comments Never 0 (1 standard drink = 0.6 oz pur e alcohol) Sex and Gender Information Value Date Recorded Sex Assigned at Male 12/05/2021 10:38 AM EDT Legal Sex Male 10:38 AM EDT Gender Identity Male 04/20/2022 3:14 PM EDT Sexual Orientation Straight 04/20/2022 3: 14 PM EDT Last Filed Vital Signs Vital Sign Reading Time Taken Comments Blood Pressure 135/85 06/14/2023 9:14 AM EDT Pulse 101 06/14/2023 9:14 AM EDT Temperature 36.8 ??C (98.3 ??F) 06/14/2023 9:14 AM ED T Respiratory Rate 20 06/14/2023 9:14 AM EDT Oxygen Saturation 95% 06/14/2023 9:14 AM EDT Inhaled Oxygen Concentration - - Weight 81.6 kg (180 lb) 06/14/2023 9:14 AM EDT Height - - Body Mass Index - - Plan of Treatment Health Maintenance Due Date Last Done Comments Chlamydia and Gonorrhea Screening 2001 Dental X-Ray: Full Mouth 2001 Depression Screening 2001 HIV Screening 2001 SDOH Screening 2001 Alcohol/Substance Use Screening 2013 Family Planning (PISQ) 2016 HPV Vaccines (1 - Male 3-dos e series) 2016 Hepatitis C Screening 10/19/2019 DTaP/Tdap/Td Vaccines (1 - Tdap) 2020 Hepatitis A Vaccines (1 of 2 - Risk 2-dose series) 2020 Hepatitis B Vaccines (1 of 3 - 19+ 3-dose series) 2020 Dental Oral Exam 10/22/2022 04/20/2022 Dental Prophylaxis 10/22/2022 04/20/2022 Dental X-Ray: Bitewings 07/06/2023 07/05/19 23, 05/11/2022, 04/20/2022 Tobacco Screening 08/08/2023 08/07/2022 COVID-19 Vaccine (1 - 2023-2 5 season) 2023 Influenza Vaccine (#1) 2023 Zoster Vaccines (1 of 2) 10/19/2051 RSV Patients and Patients Aged 60 years or older (1 - 1-dose 75+ series) 2076 HIB Vaccines Aged Out No longer eligi ble based on patient's age to complete this topic IPV Vaccines Aged Out No longer eligi ble based on patient's age to complete this topic Meningococcal Vaccine Aged Out No martir edmar eligible based on patient's age to complete this topic Pneumococcal Vaccine: Pediatrics (0 to 5 Years) and At-Risk Patients (6 to 49) Years) Aged Out No longer eligible b ased on patient's age to complete this topic RSV under 20 months Aged Out No longe r eligible based on patient's age to complete this topic Rotavirus Vaccines Aged Out No longer eligible based on patient's age to complete this topic Procedures Procedure Name Priority Date/Time Associated Diagnosis Comments BITEWING - SINGLE RADIOGRAPHIC IMAGE Routine 07/04/2022 11:00 AM EDT PROPHYLAXIS - ADULT Routine 04/20/2022 3 :00 PM EDT PERIODIC ORAL EVALUATION - ESTABLISHED PATIENT Routine 04/20/2022 1:00 PM EDT from Last 3 Months or Most Recently Relevant to Health Maintenance Insurance [facility] STANDARD DENTAL-[facility] MEDICAID STAND ADULT
--- OUTSIDE RECORDS SUMMARY | 2024-03-28 08:12 | XMS_ITS | Encounter Summary ---
Author Organization [employer] [facility] Address [address] [place] [address] Care Team Providers Care Belt Notcher Name Role Phone Unavailable Primary Care Provider Unavailabl e Encounter Details Date Type Department Care Team (Latest Contact Info) Description 12/07/2020 Abstract C CONVERSIONS Dental, Provider, DDS Social History Tobacco Use Types Packs/Day Years Used Date Smoking Tobacco: Never Assessed Sex and Gender Information Value Date Recorded Sex Assigned at Male 12/05/2021 10:38 AM EDT Legal Sex Male 10:38 AM EDT Gender Identity Male 04/20/2022 3:14 PM EDT Sexual Orientation Straight 04/20/2022 3: 14 PM EDT documented as of this encounter Plan of Treatment Not on file documented as of this encounter Visit Diagnoses Not on filedocumented in this encounter
[2024-03-28 08:26] VITALS: BP 102/76; PULSE 113; RESP 18; TEMP 36.7; O2SAT 98
--- NOTE | 2024-03-28 08:26 | MHC.OFFWIV ---
Intake Vital Signs 03/28/24 08:26 Weight 165 lb BP 102/76 Blood Pressure Location Lt brachial Position Sitting Respiration 18 Pulse 113 H Pulse Source Pulse Oximeter Temp 98.1 F Temp Source Oral Pulse Oximetry (%) 98 Oxygen Delivery Method Room Air Intake Visit Reasons: EP-running nose, sore throat, body ache, headaches Intake Note: Pt is here today c/o nasal congestion, S/T, bodyaches and H/A x2days Patient Tobacco Use Status: Never used Tobacco Allergies No Known Allergies Allergy (Verified 03/28/24 08:34) Do you need a note to return to daycare/school/sports/work: Yes HPI HPI Comments History of Present Illness Details This is a 23-year-old male who presented to the walk-in clinic complaining of viral URI symptoms. Patient reports subjective fever/chills, nasal congestion, rhinorrhea, sore throat, bilateral otalgia, and fatigue/malaise. He is also reporting a productive cough with yellow sputum, wheezing, and mild shortness of breath/chest tightness. Patient reports he is an active smoker. He denies any known history of asthma or COPD. [facility] Medical History Acute erythematous tonsillitis Acute infective otitis externa of left ear No known health problems Surgical History No pertinent past surgical history Family History Father No problems noted. Social History Household Members: Family Housing: Apartment Alcohol intake: never Patient Tobacco Use Status: Never used Tobacco e-Cigarette/Vaping Use: Never Used Second Hand Smoke Exposure: No service: No Current occupational status: unemployed Cognitive needs: No Hearing needs: No Vision needs: No Review of Systems Const All systems reviewed & are unremarkable except as noted in HPI and below Reports no additional complaints Eyes Reports no additional complaints ENT Reports no additional complaints Card Reports no additional complaints Resp Reports no additional complaints GI Reports no additional complaints Reports no additional complaints Musc Reports no additional complaints Skin/Breast Reports system reviewed and no additional complaints, except as documented Neuro Reports no additional complaints Psych Reports no additional complaints Endo Reports no additional complaints Marky/Lymph Reports no additional complaints Aller/Immun Reports no additional complaints Physical Exam Vital Signs: Last Vital Signs Temp 98.1 F 03/28/24 08:26 Pulse 113 H 03/28/24 08:26 Resp 18 03/28/24 08:26 BP 102/76 03/28/24 08:26 Pulse Ox 98 03/28/24 08:26 Oxygen Delivery Method Room Air 03/28/24 08:26 Const Other: Vital signs reviewed. Constitutional: Non-toxic appearing. No acute distress. Well-developed and well-nourished. HEENT: Normocephalic and atraumatic. There is some fluid present behind bilateral TMs, no bulging or erythema. External auditory canals without erythema or edema bilaterally. Moist mucous membranes. Mild posterior pharyngeal erythema without exudates or tonsillar edema/hypertrophy. Skin: Warm and dry. No rashes or lesions noted. Neck: Full and painless range of motion. No cervical lymphadenopathy. Cardio: Tachycardic but regular rhythm. No murmurs, gallops, or rubs. No lower extremity edema. No JVD. Pulmonary: No respiratory distress. No accessory muscle usage. Faint end expiratory wheeze. Gastrointestinal: Soft, nontender, and nondistended in all 4 quadrants. Musculoskeletal: Normal range of motion in joints throughout the body. No deformity or other signs of injury. Neuro: Alert and oriented x4. Cranial nerves 2-12 grossly intact. No focal deficits appreciated. Psych: Normal mood and affect. Results AMB Rapid Strep AMB Rapid Strep Negative Last Edit by BONNY Beaver on 03/28/24 08:42 Results Reviewed Results Reviewed: Laboratory Last Values Strep Scn Rapid Clinic Negative 03/28/24 08:41 Assessment & Plan Assessment & Plan (1) Acute viral bronchitis: Code(s): J20.8 - Acute bronchitis due to other specified organisms (2) Acute upper respiratory infection, unspecified: Code(s): J06.9 - Acute upper respiratory infection, unspecified Plan This is a 23-year-old male who presented to the walk-in clinic complaining of viral URI symptoms including nasal congestion, rhinorrhea, productive cough, sore throat, otalgia, and subjective fever/chills. On physical examination, he has mild posterior pharyngeal erythema without exudates as well as faint end expiratory wheezing. History and physical most consistent with an acute viral bronchitis and acute viral upper respiratory tract infection. A chest x-ray was obtained, which was negative for acute cardiopulmonary process. Patient was sent home with p.o. prednisone 40 mg daily x5 days as well as PO benzonatate 200 mg 3 times daily as needed for cough.I also recommended symptomatic management including rest, increased fluids, advil/tylenol for pain/fever, and over the counter throat lozenges/decongestants. Patient advised to follow up here or go to the emergency room for worsening/persistent symptoms. Patient verbalized understanding and is agreeable with the plan. Orders: Orders XR chest 2V Today SIN Posadas R05.9 - Cough, unspecified SARS-CoV2/FLU/RSV Today SIN Posadas J06.9 - Acute upper respiratory infection, unspecified AMB Rapid Strep Screen Today Breanna Aguirre PA-C Z13.9 - Encounter for screening, unspecified Medications: New benzonatate 200 mg PO TID PRN 14 caps 0RF cough SIN Posadas prednisone 40 mg (2 x 20 mg) PO DAILY 10 tabs 0RF SIN Posadas Coding Level of Care Code Est Pt Level 3 (23537) Diagnoses Acute viral bronchitis J20.8 Acute upper respiratory infection, unspecified J06.9
== END 2024-03-28 09:13 | disposition home or self-care (01) ==
PROVIDERS: PCP Physician Assistant; Visit Provider Physician Assistant Medical
DX: J20.8 Acute bronchitis due to other specified organisms (principal); J06.9 Acute upper respiratory infection, unspecified; Z13.9 Encounter for screening, unspecified

== ENCOUNTER 2024-03-28 08:08 | Outpatient (REF) | payer MEDICARE, MEDICAID, SELFPAY ==
--- NOTE | ~2024-03-28 | XR_ITS ---
EXAMINATION: XR CHEST CLINICAL INFORMATION: R05.9 - Cough, unspecified COMPARISON: November 08, 2015 TECHNIQUE: 2 views of the chest were obtained. FINDINGS: No consolidation pleural effusion or pneumothorax. Cardiomediastinal silhouette size is normal. Multilevel thoracic and upper lumbar spondylosis. XR/XR chest 2V IMPRESSION: No acute airspace disease. Multilevel spondylosis. Electronically signed by: Thee Love MD 03/28/2024 09:18 AM EST
--- OUTSIDE RECORDS SUMMARY | 2024-03-28 09:22 | XMS_ITS | Encounter Summary ---
Author Organization [employer] [facility] Address [address] [place] [address] Care Team Providers Care Early Years Teacher Name Role Phone Unavailable Primary Care Provider [...]
--- OUTSIDE RECORDS SUMMARY | 2024-03-28 09:22 | XMS_ITS | Clinical Summary ---
Author Organization [employer] Address [address] [place] [address] Care Team Providers Care Leather Piece Inspector Name Role Phone Unavailable Primary Care Provider [...] Most Recently Relevant to Health Maintenance Insurance [facility] STANDARD DENTAL-[facility] MEDICAID STAND ADULT
[2024-03-28 12:30] LABS: Influenza A PCR POSITIVE (Negative); Influenza B PCR NEGATIVE (Negative); Resp Syncy Virus RNA Qual PCR NEGATIVE (Negative); SARS COV2 PCR INHOUSE NEGATIVE (Negative)
== END 2024-03-28 08:09 | disposition home or self-care (01) ==
LOC: HO.HMGCX 08:08
PROVIDERS: PCP Physician Assistant; Visit Provider Physician Assistant Medical
DX: J20.8 Acute bronchitis due to other specified organisms (principal); R05.9 Cough, unspecified; J06.9 Acute upper respiratory infection, unspecified
CPT/HCPCS: 0241U; 71046; 87880; 99212

== ENCOUNTER → 2024-03-28 09:01 | Outpatient (BNV) | payer MEDICARE, MEDICAID, SELFPAY | PROVIDERS: PCP Physician Assistant; Visit Provider Radiology Diagnostic Radiology | DX: R05.9 Cough, unspecified (principal) | CPT/HCPCS: 71046 ==

== ENCOUNTER 2024-04-24 10:19 | Outpatient (REF) | payer MEDICARE, MEDICAID, SELFPAY ==
[2024-04-24 10:43] LABS: MANUAL DIFF FLAG NO
[2024-04-24 11:18] LABS: Basophils Percent Auto 0.6 % (0-2); Eosinophils Absolute Auto 0.1 X10*3/uL (0.0-0.4); Eosinophils Percent Auto 0.9 % (0-4); Hematocrit 45.5 % (42.0-52.0); Hemoglobin 15.1 g/dl (14.0-18.0); Imm Gran Abs Auto 0.03 X10*3/uL (0.00-0.03); Imm Gran Pct Auto 0.5 % (0.0-0.4); Lymphocytes Absolute Auto 1.6 X10*3/uL (1.2-4.9); Lymphocytes Percent Auto 24.5 % (20-40); Mean Corpuscular HGB Conc 33.2 g/dl (31.0-36.0); Mean Corpuscular Hemoglobin 29.7 pg (27.0-33.0); Mean Corpuscular Volume 89.6 fL (80.0-98.0); Mean Platelet Volume 11.2 fL (9.4-12.4); Monocytes Absolute Auto 0.6 X10*3/uL (0.1-1.2); Monocytes Percent Auto 8.8 % (2-11); Neutrophils Absolute Auto 4.2 x10*3/uL (2.0-8.3); Neutrophils Percent Auto 64.7 % (45-73); Platelet Count 165 X10*3/uL (160-400); Red Blood Count 5.08 X10*6/uL (4.60-5.80); Red Cell Distribution Width 12.7 % (11.0-16.0); White Blood Count 6.5 X10*3/uL (4.8-10.8)
[2024-04-24 11:23] LABS: Estimated Average Glucose 94 mg/dL; Hemoglobin A1c % 4.9 % (<6.0)
[2024-04-24 12:08] LABS: Alanine Aminotransferase 14 U/L (0-40); Albumin Level 4.4 g/dL (3.5-5.0); Alkaline Phosphatase 43 U/L (39-117); Anion Gap 10 (12-20); Aspartate Amino Transferase 18 U/L (5-37); Bilirubin Total 0.5 mg/dL (0.0-1.0); Blood Urea Nitrogen 15 mg/dL (9-16); Calcium 9.2 mg/dL (8.4-10.2); Carbon Dioxide 26 mmol/L (22-29); Chloride 109 mmol/L (96-108); Cholesterol 112 mg/dL (<200); Estimated Glomerular Filt Rate > 60; Glucose Random 91 mg/dL (60-115); HDL Cholesterol 50 mg/dL (>40); LDL Cholesterol Calculated 58 mg/dL (<100); Potassium 4.9 mmol/L (3.3-5.1); Sodium 140 mmol/L (135-145); Total Protein 7.6 g/dL (6.5-8.0); Triglycerides 24 mg/dL (<150)
[2024-04-24 13:51] LABS: Amphetamine Screen Urine Not Detected (Not Detect); Barbiturates, Urine Not Detected (Not Detect); Benzodiazepines Screen Urine Not Detected (Not Detect); Buprenorphine Scr Not Detected (Not Detect); Cannabinoid Screen Urine POSITIVE (Not Detect); Cocaine Screen Urine Not Detected (Not Detect); Fentanyl, urine Not Detected (Not Detect); Methadone Screen, Urine Not Detected (Not Detect); Opiate Screen Urine Not Detected (Not Detect); Oxycodone Screen Urine Not Detected (Not Detect); Phencyclidine Screen Urine Not Detected (Not Detect)
== END 2024-04-24 10:20 | disposition home or self-care (01) ==
LOC: HO.LAB 10:19
PROVIDERS: PCP Physician Assistant; Visit Provider Nurse Practitioner Psychiatric/Mental Health
DX: Z79.899 Other long term (current) drug therapy (principal); Z51.81 Encounter for therapeutic drug level monitoring
CPT/HCPCS: 80053; 80061; 80307; 83036; 85025

== ENCOUNTER 2024-05-15 09:09 | Outpatient (AMB) | payer MEDICARE, MEDICAID, SELFPAY ==
[2024-05-15 09:31] VITALS: BP 112/74; PULSE 73; TEMP 36.7; O2SAT 98; BMI 23.7
--- NOTE | 2024-05-15 09:31 | AM.OFFWIN_ITS ---
Intake Vital Signs 05/15/24 09:31 Height 5 ft 10 in Weight 165 lb BMI 23.7 BP 112/74 Blood Pressure Location Lt brachial Position Sitting Pulse 73 Pulse Source Pulse Oximeter Temp 98.1 F Temp Source Oral Pulse Oximetry (%) 98 Oxygen Delivery Method Room Air Intake Visit Reasons: EP-stuffy nose, sore throat, earache Patient Tobacco Use Status: Never used Tobacco Allergies No Known Allergies Allergy (Verified 05/15/24 09:31) Do you need a note to return to daycare/school/sports/work: Yes HPI HPI Comments History of Present Illness Details 23 y/o Male patient who presents to the walk in clinic with c/o URI symptoms for 2-3 days. Reports Nasal/chest congestion, Sore-throat and B/L Ear pains. [facility] Medical History (Updated 05/15/24 @ 09:42 by Nataliya Padilla NP) Acute respiratory disease Acute erythematous tonsillitis Acute infective otitis externa of left ear No known health problems Surgical History No pertinent past surgical history Family History Father No problems noted. Social History Household Members: Family Housing: Apartment Alcohol intake: never Patient Tobacco Use Status: Never used Tobacco e-Cigarette/Vaping Use: Never Used Second Hand Smoke Exposure: No service: No Current occupational status: unemployed Cognitive needs: No Hearing needs: No Vision needs: No Review of Systems Const All systems reviewed & are unremarkable except as noted in HPI and below Physical Exam Vital Signs: Last Vital Signs Temp 98.1 F 05/15/24 09:31 Pulse 73 05/15/24 09:31 BP 112/74 05/15/24 09:31 Pulse Ox 98 05/15/24 09:31 Oxygen Delivery Method Room Air 05/15/24 09:31 BMI result Body Mass Index 23.7 Const General: no acute distress Nutritional Appearance: thin Orientation/consciousness: patient oriented x3 HEENT Head: Yes normocephalic Ears: external ears normal and TM abnormal bulging bilateral and with fluid behind the TM bilateral; not perforated and not retracted General nose exam: Normal external nose present and Nasal discharge present Face and sinus: Yes sinuses nontender Mouth: moist mucous membranes Throat: Yes postnasal drainage Resp Effort & Inspection: normal respiratory effort and able to speak in complete sentences Auscultation: clear to auscultation bilaterally, no crackles, no rales, no rhonchi and no wheezes Cardio Rhythm: regular rhythm Heart sounds: S1 normal heart sound present and S2 normal heart sound present Neuro General: patient oriented x3, gait normal and moves all extremities Psych Speech and movement: Normal speech and movement present Assessment & Plan Assessment & Plan (1) Acute respiratory disease: Code(s): J06.9 - Acute upper respiratory infection, unspecified Plan: Ordered SARs OTC Cold/Flu Remedies Acetaminophen for pain relief Rest and hydrate well with warm fluids. Orders: Orders SARS-CoV2/FLU/RSV Today J06.9 - Acute upper respiratory infection, unspecified Coding Level of Care Code Est Pt Level 4 (62587) Diagnoses Acute respiratory disease J06.9 Time Spent (min) 20
--- OUTSIDE RECORDS SUMMARY | 2024-05-15 09:45 | XMS_ITS | Clinical Summary ---
Author Organization [employer] Address [address] [place] [address] Care Team Providers Care Industrial Health Engineer Name Role Phone Unavailable Primary Care Provider [...] Most Recently Relevant to Health Maintenance Insurance [facility] STANDARD DENTAL-[facility] MEDICAID STAND ADULT
--- OUTSIDE RECORDS SUMMARY | 2024-05-15 09:45 | XMS_ITS | Encounter Summary ---
Author Organization [employer] [facility] Address [address] [place] [address] Care Team Providers Care Base Wad Operator Adjuster Name Role Phone Unavailable Primary Care Provider [...]
== END 2024-05-15 10:19 | disposition home or self-care (01) ==
PROVIDERS: PCP Physician Assistant; Visit Provider Nurse Practitioner Family
DX: Z13.9 Encounter for screening, unspecified (principal); J06.9 Acute upper respiratory infection, unspecified

== ENCOUNTER 2024-05-15 09:09 | Outpatient (REF) | payer MEDICARE, MEDICAID, SELFPAY ==
--- OUTSIDE RECORDS SUMMARY | 2024-05-15 11:16 | XMS_ITS | Encounter Summary ---
Author Organization [email or web address] [facility] Address [address] [place] [address] Care Team Providers Care Supervisor [place] Name Role Phone Unavailable Primary Care Provider [...]
--- OUTSIDE RECORDS SUMMARY | 2024-05-15 11:16 | XMS_ITS | Clinical Summary ---
Author Organization [employer] Address [address] [place] [address] Care Team Providers Care Photostat Operator Name Role Phone Unavailable Primary Care Provider [...] Most Recently Relevant to Health Maintenance Insurance [facility] STANDARD DENTAL-[facility] MEDICAID STAND ADULT
== END 2024-05-15 09:10 | disposition home or self-care (01) ==
LOC: HO.LAB 09:09
PROVIDERS: Nurse Practitioner Family; PCP Physician Assistant
DX: J06.9 Acute upper respiratory infection, unspecified (principal)
CPT/HCPCS: 0241U; 36415; 87880; 99212

== ENCOUNTER 2024-06-04 14:31 | Outpatient (REF) | payer MEDICARE, MEDICAID, SELFPAY ==
--- NOTE | ~2024-06-04 | XR_ITS ---
EXAMINATION: XR FINGER, RIGHT CLINICAL INFORMATION: S69.90XA - Unspecified injury of unspecified wrist, hand and finger(s), ... COMPARISON: None available. TECHNIQUE: Three views of the right second digit. FINDINGS: The bones and soft tissues are normal. No fracture. Alignment is anatomic. Joint spaces are maintained. XR/XR finger RT min 2V IMPRESSION: Normal finger radiographs. Electronically signed by: Seth Barillas MD 06/04/2024 03:17 PM EDT
--- OUTSIDE RECORDS SUMMARY | 2024-06-04 16:08 | XMS_ITS | Clinical Summary ---
Author Organization [employer] Address [address] [place] [address] Care Team Providers Care Primary Education Professor Name Role Phone Unavailable Primary Care Provider [...] Most Recently Relevant to Health Maintenance Insurance [facility] STANDARD DENTAL-[facility] MEDICAID STAND ADULT
--- OUTSIDE RECORDS SUMMARY | 2024-06-04 16:08 | XMS_ITS | Encounter Summary ---
Author Organization [employer] [facility] Address [address] [place] [address] Care Team Providers Care Adjuster Leader Name Role Phone Unavailable Primary Care Provider [...]
== END 2024-06-04 14:32 | disposition home or self-care (01) ==
LOC: HO.HMGCX 14:31
PROVIDERS: PCP Physician Assistant; Visit Provider Physician Assistant
DX: S69.91XA Unspecified injury of right wrist, hand and finger(s), initial encounter (principal)
CPT/HCPCS: 73140; 99212

== ENCOUNTER 2024-06-04 14:31 | Outpatient (AMB) | payer MEDICARE, MEDICAID, SELFPAY ==
--- NOTE | 2024-06-04 14:37 | AM.OFFWIN_ITS ---
Intake Vital Signs 06/04/24 14:39 Height 5 ft 10 in Weight 165 lb BMI 23.7 BP 100/60 Blood Pressure Location Lt brachial Position Sitting Respiration 16 Pulse 72 Pulse Source Pulse Oximeter Temp 98.5 F Temp Source Oral Pulse Oximetry (%) 98 Oxygen Delivery Method Room Air Intake Visit Reasons: EP shut finger in car door Intake Note: Pt is here today c/o Rt index finger caught on car door: today Patient Tobacco Use Status: Never used Tobacco Allergies No Known Allergies Allergy (Verified 06/04/24 14:45) HPI HPI Comments History of Present Illness Details Patient is 23yo M who presents with finger injury R 2nd digit 10/10 throbbing R hand dominant No medicine for it Blood under R 2nd nail He said no numbness. + full ROM Worse with palpation. No improving factors [facility] Medical History (Updated 06/04/24 @ 15:03 by Jessica Phillips PA-C) Acute respiratory disease Acute erythematous tonsillitis Acute infective otitis externa of left ear No known health problems Surgical History No pertinent past surgical history Family History Father No problems noted. Social History Household Members: Family Housing: Apartment Alcohol intake: never Patient Tobacco Use Status: Never used Tobacco e-Cigarette/Vaping Use: Never Used Second Hand Smoke Exposure: No service: No Current occupational status: unemployed Cognitive needs: No Hearing needs: No Vision needs: No Review of Systems Const Denies chills and Denies fever(s) Musc Reports deformity, Reports arthralgias, Reports joint swelling, Reports limited range of motion, Denies numbness and Reports other (Injury R 2nd digit fingertip) Skin/Breast Reports erythema (bruising R 2nd digit), Denies rash, Reports skin pain and Reports skin swelling Neuro Denies numbness and Denies paresthesias Physical Exam Vital Signs: Last Vital Signs Temp 98.5 F 06/04/24 14:39 Pulse 72 06/04/24 14:39 Resp 16 06/04/24 14:39 BP 100/60 06/04/24 14:39 Pulse Ox 98 06/04/24 14:39 Oxygen Delivery Method Room Air 06/04/24 14:39 BMI result Body Mass Index 23.7 General: Non-toxic, NAD. Speaking full sentences. Skin: Warm dry throughout. R 2nd digit fingertip is edematous from DIP joint and distally. There is blue/red discoloration under fingernail. No nail injury or skin lacerations/openings Eye: EOMI Respiratory:No tachypnea Cardiac:RUE radial pulse 2+ intact MSK: + ttp R 2nd digit distal fingertip at DIP joint and distal phalanx. No MCP or PIP joint ttp. + full ROM flexion/extension of that digit. No other digit or metacarapal bone ttp to RUE Neurology: Alert. No aphasia or facial droop. Gait without abnormality Psych: Good mood and affect Assessment & Plan Assessment & Plan (1) Finger injury: Code(s): S69.90XA - Unspecified injury of unspecified wrist, hand and finger(s), initial encounter Qualifiers: Encounter type: initial encounter Laterality: right Qualified Code(s): S69.91XA - Unspecified injury of right wrist, hand and finger(s), initial encounter Plan: Patient seen and evaluated. Xray R 2nd digit: negative fx Rest, ice, elevate Tylenol/Motrin prn pain Finger splint with wrap applied Patient gave verbal understanding and had no additional questions or concerns at time of discharge All questions answered Orders: Orders XR finger RT min 2V Today S69.90XA - Unspecified injury of unspecified wrist, hand and finger(s), initial encounter Medications: New ibuprofen 600 mg PO Q8H PRN 14 tabs 0RF pain acetaminophen (Tylenol Extra Strength) 500 mg PO Q6H PRN 14 tabs 0RF fever Coding Level of Care Code Est Pt Level 3 (91204) Diagnoses Injury of finger of right hand, initial encounter S69.91XA Encounter type: initial encounter Laterality: right
[2024-06-04 14:39] VITALS: BP 100/60; PULSE 72; RESP 16; TEMP 36.9; O2SAT 98; BMI 23.7
--- OUTSIDE RECORDS SUMMARY | 2024-06-04 15:48 | XMS_ITS | Clinical Summary ---
Author Organization [employer] Address [address] [place] [address] Care Team Providers Care Engineering Administrator Name Role Phone Unavailable Primary Care Provider [...] Most Recently Relevant to Health Maintenance Insurance [facility] STANDARD DENTAL-[facility] MEDICAID STAND ADULT
--- OUTSIDE RECORDS SUMMARY | 2024-06-04 15:48 | XMS_ITS | Encounter Summary ---
Author Organization [employer] [facility] Address [address] [place] [address] Care Team Providers Care Adult Literacy Instructor Name Role Phone Unavailable Primary Care Provider [...]
== END 2024-06-04 15:22 | disposition home or self-care (01) ==
PROVIDERS: PCP Physician Assistant; Visit Provider Physician Assistant
DX: S69.91XA Unspecified injury of right wrist, hand and finger(s), initial encounter (principal)

== ENCOUNTER → 2024-06-04 15:04 | Outpatient (BNV) | payer MEDICARE, MEDICAID, SELFPAY | PROVIDERS: PCP Physician Assistant; Visit Provider Radiology Diagnostic Radiology | DX: S69.91XA Unspecified injury of right wrist, hand and finger(s), initial encounter (principal) | CPT/HCPCS: 73140 ==

== ENCOUNTER 2024-06-19 14:34 | Outpatient (REF) | payer MEDICARE, MEDICAID, SELFPAY ==
--- OUTSIDE RECORDS SUMMARY | 2024-06-19 15:13 | XMS_ITS | Encounter Summary ---
Author Organization [employer] [facility] Address [address] [place] [address] Care Team Providers Care Imaging Specialist Name Role Phone Unavailable Primary Care Provider [...]
--- OUTSIDE RECORDS SUMMARY | 2024-06-19 15:13 | XMS_ITS | Clinical Summary ---
Author Organization [employer] Address [address] [place] [address] Care Team Providers Care Channel Supervisor Name Role Phone Unavailable Primary Care Provider [...] (1 - Male 3-dos e series) 2016 Meningococcal B Vaccine (1 o f 2 - Standard) 2017 Hepatitis C Screening 10/19/2019 DTaP/Tdap/Td Vaccines (1 [...] Most Recently Relevant to Health Maintenance Insurance [facility] STANDARD DENTAL-[facility] MEDICAID STAND ADULT
[2024-06-19 17:06] LABS: CT PCR NOT DETECTED (Not Detect.); NG PCR NOT DETECTED (Not Detect.)
[2024-06-20 08:32] LABS: Syphilis Screen Nonreactive (Nonreactive)
[2024-06-20 08:38] LABS: HIV AB/AG Nonreactive (Nonreactive); HIV Num 1 0.09 S/CO (0.00-0.99)
== END 2024-06-19 14:35 | disposition home or self-care (01) ==
LOC: HO.LAB 14:34
PROVIDERS: PCP Physician Assistant; Visit Provider Physician Assistant
DX: Z20.2 Contact with and (suspected) exposure to infections with a predominantly sexual mode of transmission (principal)
CPT/HCPCS: 86780; 87389; 87491; 87591

== ENCOUNTER 2024-09-02 12:38 | Outpatient (REF) | payer MEDICARE, MEDICAID, SELFPAY ==
[2024-09-02 14:44] LABS: CT PCR Urine NOT DETECTED (Not Detect.); NG PCR Urine NOT DETECTED (Not Detect.)
[2024-09-03 03:35] LABS: HIV Num 1 0.08 S/CO (0.00-0.99); Syphilis Screen Nonreactive (Nonreactive)
== END 2024-09-02 12:39 | disposition home or self-care (01) ==
LOC: HO.LAB 12:38
PROVIDERS: PCP Physician Assistant; Visit Provider Physician Assistant
DX: Z11.3 Encounter for screening for infections with a predominantly sexual mode of transmission (principal); Z11.4 Encounter for screening for human immunodeficiency virus [HIV]
CPT/HCPCS: 36415; 86780; 87389; 87491; 87591

== ENCOUNTER 2024-10-17 10:14 | Outpatient (AMB) | payer MEDICARE, MEDICAID, SELFPAY ==
[2024-10-17 10:31] VITALS: BP 120/70; PULSE 90; RESP 16; TEMP 37.4; O2SAT 98; BMI 22.0
--- NOTE | 2024-10-17 10:31 | AM.OFFWIN_ITS ---
Intake Vital Signs 10/17/24 10:31 Height 5 ft 10 in Weight 153 lb BMI 22.0 BP 120/70 Blood Pressure Location Rt brachial Position Sitting Respiration 16 Pulse 90 Pulse Source Pulse Oximeter Temp 99.4 F Temp Source Oral Pulse Oximetry (%) 98 Oxygen Delivery Method Room Air Intake Visit Reasons: ep congestion, sore throat, difficulty breathing Patient Tobacco Use Status: Never used Tobacco Allergies No Known Allergies Allergy (Verified 10/17/24 10:36) HPI ep congestion, sore throat, difficulty breathing HPI Details This is a 23-year-old male patient presents to the walk-in clinic today with a 3 day history of itchy/sore throat, congestion, productive cough, and wheezing. History of asthma. Has albuterol inhaler at home, as well as nebulizer, but does not have any refills for his nebulizer. Has been feeling hot/cold. Known exposure to sick family members. No positive flu/COVID that he is aware of however. [facility] Medical History Acute respiratory disease Acute erythematous tonsillitis Acute infective otitis externa of left ear No known health problems Surgical History No pertinent past surgical history Family History Father No problems noted. Social History Household Members: Family Housing: Apartment Alcohol intake: never Patient Tobacco Use Status: Never used Tobacco e-Cigarette/Vaping Use: Never Used Second Hand Smoke Exposure: No service: No Current occupational status: unemployed Cognitive needs: No Hearing needs: No Vision needs: No Review of Systems Const All systems reviewed & are unremarkable except as noted in HPI and below Physical Exam Vital Signs: Last Vital Signs Temp 99.4 F 10/17/24 10:31 Pulse 90 10/17/24 10:31 Resp 16 10/17/24 10:31 BP 120/70 10/17/24 10:31 Pulse Ox 98 10/17/24 10:31 Oxygen Delivery Method Room Air 10/17/24 10:31 BMI result Body Mass Index 22.0 Const General: cooperative, no acute distress and ill appearing acutely HEENT Head: Yes normal to inspection Ears: hearing grossly normal bilaterally and TM's normal bilaterally General nose exam: Normal external nose present and Normal nasal mucous membranes and turbinates present Face and sinus: Yes normal facial exam Mouth: Normal oral and palatal mucosa present Throat: Yes posterior oropharynx abnormal (Erythema) Neck Neck: Yes no lymphadenopathy Resp Effort & Inspection: Actively coughing Quality: productive Auscultation: wheezes expiratory wheezes, inspiratory wheezes and throughout Cardio Palpation: normal PMI Rate: regular rate Rhythm: regular rhythm Skin General skin exam: no rashes or lesions noted Extrem General: Yes capillary refill normal and Yes no clubbing, cyanosis or edema Psych Appearance: grossly normal Mental Status: mental status grossly normal Speech and movement: Normal speech and movement present Office Procedures Nebulizer Treatment Nebulizer Treatment 15052-Ldshphkib/MDI RX initial, or Nebulizer Subsequent Treatment Office Meds ipratropium 0.5 mg-albuterol 3 mg (2.5 mg base)/3 mL nebulization soln Performing Provider: MARCIANO Oneil Performing Location: [facility] Administered by: Ela Kaiser on 10/17/24 11:21 Dose Route Admin Location Dispensed Lot Number Expiration Date [facility] [employer] 3 mL inhalation 3 mL [id number] 03/07/26 12510-618-45 [employer] 3 mL inhalation 3 mL Assessment & Plan Assessment & Plan (1) Wheezing: Code(s): R06.2 - Wheezing Plan: Symptoms consistent with acute, likely viral, upper respiratory infection. R apid strep was negative. COVID/flu/RSV swab was obtained, and patient aware he will be notified of results once these are available. Nebulizer/DuoNeb treatment provided in the office today with significant reduction in wheezing. Patient reports feeling significantly better following treatment. I am going to start patient on a short course of prednisone, as well as benzonatate for the cough. I will also refill his albuterol for his nebulizer for home use. If he develops any worsening wheezing/shortness of breath, he should go to the emergency department for evaluation. All questions were answered patient verbalizes understanding and agrees to plan. (2) Asthma: Code(s): J45.909 - Unspecified asthma, uncomplicated Qualifiers: Asthma severity: unspecified severity Asthma persistence: intermittent Asthma complication type: with acute exacerbation Qualified Code(s): J45.21 - Mild intermittent asthma with (acute) exacerbation Plan: As above Orders: Orders AMB Rapid Strep Screen Today Z13.9 - Encounter for screening, unspecified SARS-CoV2/FLU/RSV Today R09.89 - Other specified symptoms and signs involving the circulatory and respiratory systems AMB Nebulizer Treatment Today R06.2 - Wheezing Medications: New benzonatate 100 mg PO BID PRN 14 caps 0RF cough 7 days R05.9 - Cough, unspecified albuterol sulfate 2.5 mg (0.5 mL) inhalation Q6H PRN 30 ea 1RF shortness of breath or wheezing J45.909 - Unspecified asthma, uncomplicated prednisone 40 mg (2 x 20 mg) PO DAILY 6 tabs 0RF 3 days J45.901 - Unspecified asthma with (acute) exacerbation albuterol sulfate 90 mcg/actuation (Ventolin HFA) 1 inh inhalation QID PRN 6.7 grams 1RF shortness of breath or wheezing J45.21 - Mild intermittent asthma with (acute) exacerbation Coding Level of Care Code Est Pt Level 4 (89401) Diagnoses Wheezing R06.2 Intermittent asthma with acute exacerbation, unspecified asthma severity J45.21 Asthma severity: unspecified severity Asthma persistence: intermittent Asthma complication type: with acute exacerbation CPT Codes Nebulizer Treatment - Nebulizer Treatment, initial or subsequent: 24362- Nebulizer/MDI RX initial, or Nebulizer Subsequent Treatment ([id number])
== END 2024-10-17 11:46 | disposition home or self-care (01) ==
PROVIDERS: PCP Physician Assistant; Visit Provider Nurse Practitioner Family
DX: J45.21 Mild intermittent asthma with (acute) exacerbation (principal); R06.2 Wheezing; J02.9 Acute pharyngitis, unspecified

== ENCOUNTER 2024-10-17 10:14 | Outpatient (REF) | payer MEDICARE, MEDICAID, SELFPAY ==
[2024-10-17 15:10] LABS: Resp Syncy Virus RNA Qual PCR NEGATIVE (Negative); SARS COV2 PCR INHOUSE NEGATIVE (Negative)
== END 2024-10-17 10:15 | disposition home or self-care (01) ==
LOC: HO.LNP 10:14
PROVIDERS: PCP Physician Assistant; Visit Provider Nurse Practitioner Family
DX: J45.21 Mild intermittent asthma with (acute) exacerbation (principal); R09.89 Other specified symptoms and signs involving the circulatory and respiratory systems
CPT/HCPCS: 87637; 87880; 94640; 99212

== ENCOUNTER 2024-10-29 11:38 | Outpatient (REF) | payer MEDICARE, MEDICAID, SELFPAY ==
[2024-10-29 14:03] LABS: CT PCR Urine NOT DETECTED (Not Detect.); NG PCR Urine NOT DETECTED (Not Detect.)
[2024-10-30 03:50] LABS: Syphilis Screen Nonreactive (Nonreactive)
[2024-10-30 04:14] LABS: HBS Num1 0.00 mIU/mL (0-7.99); HBc Num1 0.11 S/CO (0.00-0.79); HBsAGNum1 0.41 S/CO (0.00-0.99); HIV Num 1 0.08 S/CO (0.00-0.99); Hepatitis B Surface Antigen Negative (Negative); ~HepC Num1 0.14 S/CO (0.00-0.79); ~Hepatitis B Surface Antibody NONREACTIVE (Nonreactive); ~Hepatitis C Antibody Nonreactive (Nonreactive)
== END 2024-10-29 11:39 | disposition home or self-care (01) ==
LOC: HO.LAB 11:38
PROVIDERS: PCP Physician Assistant; Visit Provider Physician Assistant
DX: Z01.84 Encounter for antibody response examination (principal); Z11.4 Encounter for screening for human immunodeficiency virus [HIV]; Z11.3 Encounter for screening for infections with a predominantly sexual mode of transmission; Z11.8 Encounter for screening for other infectious and parasitic diseases
CPT/HCPCS: 86695; 86696; 86704; 86706; 86780; 86803; 87340; 87389; 87491; 87591

== ENCOUNTER 2024-11-29 09:45 | Outpatient (REF) | payer MEDICARE, MEDICAID, SELFPAY ==
[2024-11-29 10:19] LABS: Hematocrit 46.0 % (42.0-52.0); Hemoglobin 15.5 g/dl (14.0-18.0); Mean Corpuscular HGB Conc 33.7 g/dl (31.0-36.0); Mean Corpuscular Hemoglobin 29.9 pg (27.0-33.0); Mean Corpuscular Volume 88.6 fL (80.0-98.0); NRBC Abs Auto 0.000 X10*3/uL (0.0-0.012); NRBC Pct Auto 0.0 /100WBC (0.0-0.2); Platelet Count 149 X10*3/uL (160-400); Red Blood Count 5.19 X10*6/uL (4.60-5.80); White Blood Count 5.3 X10*3/uL (4.8-10.8)
[2024-11-29 10:58] LABS: Alanine Aminotransferase 11 U/L (0-40); Albumin Level 4.7 g/dL (3.5-5.0); Alkaline Phosphatase 47 U/L (39-117); Anion Gap 12 (12-20); Aspartate Amino Transferase 17 U/L (5-37); Blood Urea Nitrogen 10 mg/dL (9-16); Calcium 9.0 mg/dL (8.4-10.2); Carbon Dioxide 25 mmol/L (22-29); Chloride 109 mmol/L (96-108); Estimated Glomerular Filt Rate > 60; Potassium 4.0 mmol/L (3.3-5.1); Sodium 142 mmol/L (135-145); Total Protein 7.2 g/dL (6.5-8.0)
[2024-11-29 11:14] LABS: HIV Num 1 0.10 S/CO (0.00-0.99)
[2024-11-29 11:16] LABS: Syphilis Screen Nonreactive (Nonreactive)
== END 2024-11-29 09:46 | disposition home or self-care (01) ==
LOC: HO.LAB 09:45
PROVIDERS: PCP Physician Assistant; Visit Provider Physician Assistant
DX: Z11.4 Encounter for screening for human immunodeficiency virus [HIV] (principal); Z20.2 Contact with and (suspected) exposure to infections with a predominantly sexual mode of transmission; Z13.1 Encounter for screening for diabetes mellitus
CPT/HCPCS: 80053; 85027; 86780; 87389

== ENCOUNTER 2024-12-01 10:13 | Outpatient (REF) | payer MEDICARE, MEDICAID, SELFPAY ==
[2024-12-01 13:37] LABS: CT PCR Urine NOT DETECTED (Not Detect.); NG PCR Urine NOT DETECTED (Not Detect.)
== END 2024-12-01 10:14 | disposition home or self-care (01) ==
LOC: HO.LAB 10:13
PROVIDERS: PCP Physician Assistant; Visit Provider Physician Assistant
DX: Z20.2 Contact with and (suspected) exposure to infections with a predominantly sexual mode of transmission (principal)
CPT/HCPCS: 87491; 87591

== ENCOUNTER 2024-12-08 08:32 | Emergency (ER) | payer OTHER, MEDICARE, MEDICAID, SELFPAY ==
[2024-12-08 08:44] VITALS: BP 160/68; PULSE 95; RESP 18; TEMP 36.4; O2SAT 96; BMI 20.4
--- NOTE | 2024-12-08 08:50 | ED_ITS ---
HPI - General Adult General Chief complaint: General Medical Stated complaint: got poked at work 12/04 Time Seen by Provider: 12/08/24 08:50 Source: patient Mode of arrival: ambulatory Limitations: no limitations History of Present Illness ED Provider: MACI SIMPSON PA-C HPI narrative: 24 yo M presents to the ED today for evaluation of potential blood borne pathogen exposure following an injury to his L index finger at work 4 days ago. Patient states that he was removing trash from an outside bin which is exposed to the public when he felt a light poke to his finger. Patient was wearing gloves at the time of the incident. States that the glove was intact, he did not notice any blood on his finger or break in the skin. States that he examined the bag and did not visualize any exposed objects. He is unsure of what poked his finger. Spoke with his microbiology manager who suggested he be seen as a precaution. Related Data Home Medications ?Medication ?Instructions ?Recorded ?Confirmed quetiapine 200 mg tablet 200 mg PO BEDTIME 06/15/23 0 08/02/23 Previous Rx's ?Medication ?Instructions ?Recorded acetaminophen 500 mg tablet 500 mg PO Q6H PRN fever #1 4 tabs 06/04/24 (Tylenol Extra Strength) ibuprofen 600 mg tablet 600 mg PO Q8H PRN pain #14 t abs 06/04/24 albuterol sulfate 2.5 mg/0.5 mL 2.5 mg (0.5 mL) inhala tion Q6H PRN 10/17/24 solution for nebulization shortness of breath or wheez ing #30 ea albuterol sulfate 90 mcg/actuation 1 inh inhalation QI D PRN shortness 10/17/24 aerosol inhaler (Ventolin HFA) of breath or wheezing # 6.7 grams benzonatate 100 mg capsule 100 mg PO BID PRN cough 7 d ays #14 10/17/24 caps prednisone 20 mg tablet 40 mg (2 x 20 mg) PO DAILY 3 days 10/17/24 #6 tabs Allergies Allergy/AdvReac Type Severity Reaction Status Date / Time No Known Allergies Allergy Verified 12/08/24 08:46 Review of Systems 2 Review of Systems: Yes all other systems are reviewed and are negative PMFSH Past Medical History Attestation statement: The following information was validated with the patient. Source: old records reviewed and nursing notes reviewed Medical History Acute respiratory disease Acute erythematous tonsillitis Acute infective otitis externa of left ear No known health problems Surgical History No pertinent past surgical history Family History Family History Father No problems noted. Social History Social History Household Members: Family Housing: Apartment Alcohol intake: never Patient Tobacco Use Status: Never used Tobacco e-Cigarette/Vaping Use: Never Used Second Hand Smoke Exposure: No Advance Directives: No Advance Directives Information Provided: No service: No Current occupational status: unemployed Cognitive needs: No Hearing needs: No Vision needs: No Physical Exam ED Vital Signs: Vital Signs - 24 hr 12/08/24 08:44 12/08/24 09:54 Temperature 97.5 F 97.5 F Pulse Rate 95 95 Respiratory Rate 18 18 Blood Pressure 160/68 H 160/68 H Pulse Oximetry 96 96 Oxygen Delivery Method Room Air Room Air BMI result Body Mass Index 20.4 Medical Decision Making Medical Decision Making MDM Narrative: Patient is a 24-year-old male presenting to the Emergency Department for evaluation s/p injury from unknown object. Patient denies any known personal medical history of HIV or hepatitis. Patient and I had a lengthy discussion about the likelihood of cynthia HIV/ hepatitis via accidental needle stick injury, 0. Patient feels strongly about receiving HIV pep which I feel is reasonable.? CBC and CMP are unremarkable. Serologies for HIV and hepatitis have been sent to lab.? After discussion, will hold on post exposure kit for pep. Recommended out patient follow up with [facility] for further evaluation and treatment.? Differential Diagnosis Differential Diagnoses: The differential diagnosis associated with the presentation includes as above. Admission/Observation not indicated Lab Data MDM Lab Attestation statement: I reviewed the patient's lab results. as above. 12/08/24 09:44 12/08/24 09:44 Labs: Lab Results 12/08/24 Range/Units 09:44 WBC 6.1 (4.8-10.8) X10*3/uL RBC 5.20 (4.60-5.80) X10*6/uL Hgb 15.3 (14.0-18.0) g/dl Hct 46.3 (42.0-52.0) % MCV 89.0 (80.0-98.0) fL MCH 29.4 (27.0-33.0) pg MCHC 33.0 (31.0-36.0) g/dl RDW 12.5 (11.0-16.0) % Plt Count 161 (160-400) X10*3/uL MPV 10.7 (9.4-12.4) fL Immature Gran % (Auto) 0.2 (0.0-0.4) % Neut % (Auto) 57.2 (45-73) % Lymph % (Auto) 29.7 (20-40) % Callahan % (Auto) 10.8 (2-11) % Eos % (Auto) 1.6 (0-4) % Baso % (Auto) 0.5 (0-2) % Lymph # (Auto) 1.8 (1.2-4.9) X10*3/uL Callahan # (Auto) 0.7 (0.1-1.2) X10*3/uL Eos # (Auto) 0.1 (0.0-0.4) X10*3/uL Baso # (Auto) 0.0 (0.0-0.2) X10*3/uL Abs Immat Gran (auto) 0.01 (0.00-0.03) X10*3/uL Absolute Neuts (auto) 3.5 (2.0-8.3) x10*3/uL Absolute Nucleated RBC 0.000 (0.0-0.012) X10*3/uL Nucleated RBC % (auto) 0.0 (0.0-0.2) /100WBC Sodium 142 (135-145) mmol/L Potassium 4.2 (3.3-5.1) mmol/L Chloride 111 H (96-108) mmol/L Carbon Dioxide 26 (22-29) mmol/L Anion Gap 9 L (12-20) BUN 8 L (9-16) mg/dL Creatinine 0.94 (0.5-1.4) mg/dL Estim Creat Clear Calc 121.0 Estimated GFR > 60 Random Glucose 92 (60-115) mg/dL Calcium 9.0 (8.4-10.2) mg/dL Total Bilirubin 0.5 (0.0-1.0) mg/dL AST 19 (5-37) U/L ALT 11 (0-40) U/L Alkaline Phosphatase 48 (39-117) U/L Total Protein 7.2 (6.5-8.0) g/dL Albumin 4.6 (3.5-5.0) g/dL Hepatitis A IgM Ab Nonreactive (Nonreactive) Hep Bs Antigen Negative (Negative) Hep Bs Antibody NONREACTIVE (Nonreactive) Hep B Core Total Ab Nonreactive (Nonreactive) Hepatitis C Ab (EIA) Nonreactive (Nonreactive) HIV 1&2 Ab/P24 Ag 4thGn Nonreactive (Nonreactive) Social Determinants Patient?s care significantly limited by Social Determinants of Health including: Other Social Determinant of Health Critical Care Time Critical Care Time Critical Care Time: No Discharge Plan Discharge Clinical Impression: Finger injury Qualifiers: Encounter type: initial encounter Laterality: right Qualified Code(s): S69.91XA - Unspecified injury of right wrist, hand and finger(s), initial encounter Patient Disposition: Home, Self-Care Instructions: Needle Stick Injuries (ED), PEP (Postexposure Prophylaxis) (ED) Additional Instructions: You were evaluated in the ED today for a potential needle stick injury. It is reassuring that your glove was intact and that there was no puncutre wound to your finger. As discussed, if this was truly a needle stick puncture, your chance of transmission of any infectious diseases is extremely low. We obtained blood work, including HIV and hepatitis testing. These tests will take a few days to result. We will contact you with any concerning results. After discussion, we have decided against post-exposure prophylaxis today. Please follow up with your PCP as needed. Return with any new or worsening symptoms. In the case of an emergency call 911. As this was a work-related injury, you may follow up with the [facility]. Referral provided below. Prescriptions: No Action quetiapine 200 mg tablet 200 mg PO BEDTIME prednisone 20 mg tablet 40 mg PO DAILY 3 Days Qty: 6 0RF benzonatate 100 mg capsule 100 mg PO BID PRN (Reason: cough) 7 Days Qty: 14 0RF albuterol sulfate 2.5 mg/0.5 mL solution for nebulization 2.5 mg inhalation Q6H PRN (Reason: shortness of breath or wheezing) Qty: 30 1RF albuterol sulfate [Ventolin HFA] 90 mcg/actuation HFA aerosol inhaler 1 inh inhalation QID PRN (Reason: shortness of breath or wheezing) Qty: 6.7 1RF ibuprofen 600 mg tablet 600 mg PO Q8H PRN (Reason: pain) Qty: 14 0RF acetaminophen [Tylenol Extra Strength] 500 mg tablet 500 mg PO Q6H PRN (Reason: fever) Qty: 14 0RF Referrals: [facility] [Outside] Edson Shaw PA-C [Primary Care Provider, Internal Medicine] Interventions: ED Discharge Assessment Last Done: 12/08/24 09:54 Discharge Date/Time: 12/08/24 09:55 Print Language: Libyan
[2024-12-08 09:49] LABS: MANUAL DIFF FLAG NO
[2024-12-08 09:54] VITALS: BP 160/68; PULSE 95; RESP 18; TEMP 36.4; O2SAT 96
[2024-12-08 09:54] LABS: Hematocrit 46.3 % (42.0-52.0); Hemoglobin 15.3 g/dl (14.0-18.0); Imm Gran Abs Auto 0.01 X10*3/uL (0.00-0.03); Imm Gran Pct Auto 0.2 % (0.0-0.4); Lymphocytes Absolute Auto 1.8 X10*3/uL (1.2-4.9); Mean Corpuscular HGB Conc 33.0 g/dl (31.0-36.0); Mean Corpuscular Hemoglobin 29.4 pg (27.0-33.0); Mean Corpuscular Volume 89.0 fL (80.0-98.0); NRBC Abs Auto 0.000 X10*3/uL (0.0-0.012); NRBC Pct Auto 0.0 /100WBC (0.0-0.2); Platelet Count 161 X10*3/uL (160-400); Red Blood Count 5.20 X10*6/uL (4.60-5.80); White Blood Count 6.1 X10*3/uL (4.8-10.8)
[2024-12-08 10:11] LABS: Alanine Aminotransferase 11 U/L (0-40); Albumin Level 4.6 g/dL (3.5-5.0); Alkaline Phosphatase 48 U/L (39-117); Anion Gap 9 (12-20); Aspartate Amino Transferase 19 U/L (5-37); Blood Urea Nitrogen 8 mg/dL (9-16); Calcium 9.0 mg/dL (8.4-10.2); Carbon Dioxide 26 mmol/L (22-29); Chloride 111 mmol/L (96-108); Creatinine Clr Calc Pharmacy 121.0; Estimated Glomerular Filt Rate > 60; Potassium 4.2 mmol/L (3.3-5.1); Sodium 142 mmol/L (135-145); Total Protein 7.2 g/dL (6.5-8.0)
[2024-12-08 10:34] LABS: HBS Num1 0.00 mIU/mL (0-7.99); HBc Num1 0.08 S/CO (0.00-0.79); HBsAGNum1 0.67 S/CO (0.00-0.99); HIV Num 1 0.07 S/CO (0.00-0.99); Hepatitis A Antibody IgM 0.29 Index (0-0.79); Hepatitis B Surface Antigen Negative (Negative); ~HepC Num1 0.16 S/CO (0.00-0.79); ~Hepatitis A Antibody IgM Nonreactive (Nonreactive); ~Hepatitis B Surface Antibody NONREACTIVE (Nonreactive); ~Hepatitis C Antibody Nonreactive (Nonreactive)
== END 2024-12-08 09:55 | disposition home or self-care (01) ==
PROVIDERS: Physician Assistant Medical; Emergency Provider Emergency Medicine; PCP Physician Assistant
DX: S61.231A Puncture wound without foreign body of left index finger without damage to nail, initial encounter (principal); W46.0XXA Contact with hypodermic needle, initial encounter; Y99.0 Civilian activity done for income or pay; Y92.69 Other specified industrial and construction area as the place of occurrence of the external cause
CPT/HCPCS: 36415; 80053; 85025; 86704; 86706; 86709; 86803; 87340; 87389; 99282; 99283

== ENCOUNTER 2024-12-30 13:32 | Outpatient (AMB) | payer MEDICARE, MEDICAID, SELFPAY ==
--- NOTE | 2024-12-30 13:37 | MHC.PC.OV ---
Vital Signs 12/30/24 13:39 Height 5 ft 10 in Weight 154 lb 4 oz BMI 22.1 BP 120/68 Blood Pressure Location Lt brachial Position Sitting Pulse 72 Pulse Source Pulse Oximeter Temp 97.3 F Temp Source Temporal Artery Scan Pulse Oximetry (%) 98 Oxygen Delivery Method Room Air Intake Visit Reasons: CPE Intake Note: Patient is here today for a physical. Infantryman Required: No Public Health Training Assistant: Present Accompanied by: Father Allergies No Known Allergies Allergy (Verified 12/30/24 13:38) Tobacco use date assessed: 12/30/24 Dental Screening Dental Screen Date: 12/30/24 Did you have a dental visit in the last 12 months?: No Did you have a dental problem in the last 6 months where you did not have access to dental care?: No Was dental information given to patient?: Patient has dentist HPI CPE HPI Details Patient is a 24-year-old male here today for an annual physical. Patient has a past medical history significant for insomnia and asthma. Concern--> ? GERD The patient reports unintentional weight loss, with current weight at 154 lbs, down from 165 lbs. This is associated with a decreased appetite and an inability to eat regular meals. The patient notes that forcing food down causes regurgitation. The patient denies any upper abdominal pain. .. Asthma: Patient reports asthma has been very well controlled with only very limited p.r.n. use of his albuterol inhaler and particularly in the winter. Vaccines: Up-to-date with tetanus, COVID vaccines, considering flu vaccine today [facility] Medical History (Updated 12/31/24 @ 07:23 by Edson Shaw PA-C) Acute erythematous tonsillitis Acute infective otitis externa of left ear No known health problems Surgical History No pertinent past surgical history Family History Father No problems noted. Social History (Updated 12/30/24 @ 13:49 by Edson Shaw PA-C) Household Members: Family Housing: Apartment Alcohol intake: never Patient Tobacco Use Status: Never used Tobacco e-Cigarette/Vaping Use: Never Used Second Hand Smoke Exposure: No Substance Use Type: Marijuana service: No Current occupational status: employed Current occupation: [employer] Cognitive needs: No Hearing needs: No Vision needs: No Questionnaire PHQ-9 Over the last 2 weeks, how often have you been bothered by any of the following problems? 1. Little interest or pleasure in doing things: several days 2. Feeling down, depressed, or hopeless: not at all 3. Trouble falling or staying asleep, or sleeping too much: not at all 4. Feeling tired or having little energy: not at all 5. Poor appetite or overeating: not at all 6. Feeling bad about yourself - or that you are a failure or have let yourself or your family down: several days 7. Trouble concentrating on things, such as reading the newspaper or watching television: several days 8. Moving or speaking so slowly that other people could have noticed. Or the opposite - being so fidgety or restless that you have been moving around a lot more than usual: not at all 9. Thoughts that you would be better off or of hurting yourself in some way: not at all Total score: 3 Depression Screening Interpretation: Positive Depression Screening Follow-up: Existing condition and In treatment Depression Screening Done: Yes 03863 - PHQ-9 Billing: Yes Source: Developed by Drs. Ja Sellers, Janice Herrera, Domingo Burris and colleagues, with an educational pippa from [employer]. Thrive Questionnaire Date Thrive assessed: 12/30/24 I am a: Patient What is your living situation today?: I have a steady place to live Within the past 12 months, did the food you bought not last and you didn't have the money to get more?: I choose not to answer this question Within the past 12 months, did you worry whether your food would run out before you got money to buy more?: I choose not to answer this question Do you have trouble paying for medicines?: I choose not to answer this question Do you have trouble getting transportation to medical appointments?: I choose not to answer this question Do you have trouble paying your heating and electricity bill?: I choose not to answer this question Do you have trouble taking care of your child, family member or friend?: I choose not to answer this question Do you have trouble with day-to-day activities such as bathing, preparing meals, shopping, managing finances, etc.?: I choose not to answer this question Are you currently unemployed and looking for a job?: I choose not to answer this question Are you interested in more education?: I choose not to answer this question Please select the resources that you would like help with: None Currently or been in a relationship where the following occur: I choose not to answer THRIVE Score: 0 AUDIT C Alcohol Use Questionnaire (AUDIT-C) 1. How often do you have a drink containing alcohol?: Never Total Score: 0 MAMADOU-7 AMB Questionnaire MAMADOU-7 Date MAMADOU - 7 assessed: 12/30/24 Feeling nervous, anxious, or on edge: 0 = Not at all Not being able to stop or control worryin = Not at all Worrying too much about different things: 0 = Not at all Trouble relaxin = Not at all Being so restless that it is hard to sit still: 0 = Not at all Becoming easily annoyed or irritable: 0 = Not at all Feeling afraid as if something awful might happen: 0 = Not at all Total MAMADOU-7 score (0-4 normal; 5-9 mild; 10-14 moderate; 15-21 severe): 0 Source: Developed by Drs. Ja Sellers, Janice Herrera, Domingo Burris and colleagues, with an educational pippa from [employer]. MAMADOU-7 Assessment Billing MAMADOU-7 Assessment Tool: MAMADOU-7 Assessment 27308 Review of Systems Const Denies body aches, Denies chills, Denies excessive sweating, Denies fatigue, Denies fever(s) and Denies headache(s) Eyes Denies blurry vision ENT Denies dysphagia, Denies vertigo, Denies dizziness, Denies headache(s), Denies hearing loss and Denies tinnitus Card Denies chest pain, Denies chest pain with activity, Denies syncope, Denies irregular heart rhythm and Denies dyspnea Resp Denies chest congestion, Denies cough, Denies hemoptysis, Denies dyspnea and Denies wheezing GI Denies abdominal pain, Denies melena, Denies hematochezia, Denies coffee ground emesis, Denies dysphagia, Denies diarrhea, Denies nausea and Reports vomiting Denies difficulty urinating, Denies dysuria, Denies urinary frequency, Denies urinary hesitancy and Denies urinary urgency Musc Denies arthralgias, Denies limited range of motion, Denies muscle cramps and Denies muscle weakness Skin/Breast Denies rash and Denies skin ulcer Neuro Denies Abnormal speech present, Denies confusion, Denies vertigo, Denies dizziness, Denies syncope, Denies headache(s), Denies memory loss and Denies seizure-like activity Psych Denies anxiety, Denies confusion, Denies depression, Denies memory loss, Denies panic attacks and Denies paranoia Endo Denies excessive sweating, Denies fatigue, Denies flushing, Denies polydipsia and Denies polyuria Aller/Immun Denies wheezing Physical exam (Primary Care) Vital Signs: Last Vital Signs Temp 97.3 F 12/30/24 13:39 Pulse 72 12/30/24 13:39 BP 120/68 12/30/24 13:39 Pulse Ox 98 12/30/24 13:39 Oxygen Delivery Method Room Air 12/30/24 13:39 BMI result Body Mass Index 22.1 Tobacco/Smoking Status: Tobacco use Status Tobacco use date assessed 12/30/24 12/30/24 13:44 Patient Tobacco Use Status Never used Tobacco 12/30/24 13:49 e-Cigarette/Vaping Use Never Used 12/30/24 13:49 PHQ-9: PHQ-9 Score PHQ-9: Total score 3 12/30/24 14:14 Depression Screening Interpretation: Positive Depression Screening Follow-up: Existing condition and In treatment Thrive Assessment: Date of Thrive Assessment Date Thrive assessed 12/30/24 12/30/24 13:44 Currently or been in a relationship where the following occur: I choose not to answer Const General: cooperative, comfortable, no acute distress, alert and awake; No confusion Orientation/consciousness: oriented to person, oriented to place, patient oriented x3 and No confusion HENMT Head: Yes normocephalic Ears: external ears normal and TM's normal bilaterally Face and sinus: No sinus tenderness Mouth: Normal oral and palatal mucosa present and tongue normal Teeth and gingiva: dentition normal and gingiva normal Throat: Yes posterior oropharynx normal, Yes tonsils normal and Yes uvula midline Eyes Conjunctivae: conjunctivae normal Sclerae: sclerae normal Pupils: Equal, round and reactive pupils present EOM: EOMs intact bilaterally Direct Ophthalmoscopy: No no photophobia Neck Neck: Yes no lymphadenopathy, No tender and Yes no JVD Thyroid: Thyroid normal Carotids: no bruits Chest Chest palpation & inspection: no tenderness Resp Effort & Inspection: normal respiratory effort, no audible wheezes, not labored and no stridor Auscultation: no crackles, no rales, no rhonchi and no wheezes Cardio Jugular venous distension: no JVD Rate: regular rate, not bradycardic and not tachycardic Rhythm: regular rhythm Bruits: no carotid bruits Peripheral pulses: Peripheral pulses 2+ throughout GI Inspection: Yes normal to inspection, No abdominal wall ecchymosis and No visible herniation Palpation (GI): Soft to palpation, nontender, no guarding, not rigid and No hepatosplenomegaly present Auscultation: normoactive bowel sounds General: Yes no CVA tenderness Back/Spine/Pelvis Back: no CVA tenderness and No back tenderness Cervical Spine: cervical ROM normal Thoracic/Lumbar Spine: thoracic and lumbar spine normal to inspection, straight leg raise negative bilaterally, No thoraco-lumbar ROM limited and No lumbar spinal tenderness Skin Lesions: no lesions Rashes: no rashes Wounds: no wounds Neuro General: oriented to person, oriented to place, patient oriented x3, CN's II-XI intact bilaterally and No confusion Cranial nerves: Yes Equal, round and reactive pupils present and Yes Normal accommodation reflex present Cognition (Neuro): normal cognition Speech: No Abnormal speech present Gait exam (Neuro): Normal gait present Motor exam (neuro): 5/5 motor strength present throughout Extrem Right upper extremity: full ROM; no cyanosis Left upper extremity: full ROM; no cyanosis Right lower extremity: no edema Left lower extremity: no edema Psych Appearance: grossly normal Mental Status: mental status grossly normal Affect: normal affect Attitude: cooperative Thought process: Normal thought process present Office Procedures Flu Questionnaire Does the patient have a severe egg allergy?: No Does the patient have severe life threatening allergies?: No Does the patient have a fever or illness today?: No Has the patient ever had Guillain-[place] Syndrome?: No Has the patient ever had any past reaction to a flu shot?: No Immunizations Fluarix [id number] (PF) 45 mcg (15 mcg x 3)/0.5 mL IM syringe Performing Provider: Edson Shaw PA-C [facility] Administered by: Jessica Barbosa CMA on 12/30/24 14:14 Dose Route Admin Location Dispensed Lot Number Expiration Date NDC Machine Sander 0.5 mL IM Left Deltoid 0.5 mL [id number] 08/04/25 [id number] [employer] VIS Given Date VIS Provided VIS Publication Date 12/30/24 Single Vaccine 24 Eligibility Eligibility Date Funding Source Not [facility] Eligible 12/30/24 Private Coding Level of Care Code Est Pt Prev Care 18-39y(72647) Diagnoses Annual physical exam Z00.00 Gastroesophageal reflux disease without esophagitis K21.9 Esophagitis presence: without esophagitis MDD (major depressive disorder), recurrent episode, mild F33.0 Additional Codes PHQ-9 - 11186 - PHQ-9 Billing: Yes ([id number]) MAMADOU-7 Assessment Billing - MAMADOU-7 Assessment Tool: MAMADOU-7 Assessment 70580 ([id number]) Assessment & Plan Assessment & Plan (1) Annual physical exam: Code(s): Z00.00 - Encounter for general adult medical examination without abnormal findings Category: Medical Plan: As per HPI (2) GERD (gastroesophageal reflux disease): Code(s): K21.9 - Gastro-esophageal reflux disease without esophagitis Category: Medical Qualifiers: Esophagitis presence: without esophagitis Qualified Code(s): K21.9 - Gastro-esophageal reflux disease without esophagitis Plan: For the patient's symptoms of decreased appetite, weight loss, and regurgitation, a trial of omeprazole will be initiated to manage suspected gastritis or gastroesophageal reflux. The medication will be taken once daily in the morning on an empty stomach. To rule out an infectious etiology, a stool test for H. pylori will be ordered. (3) MDD (major depressive disorder), recurrent episode, mild: Code(s): F33.0 - Major depressive disorder, recurrent, mild Category: Medical Plan: Patient's PHQ-9 score positive for mild depression which has been existing condition for him. He does speak with a mental health therapist quite regularly. He takes Seroquel for his mood and for sleep which has been working well. 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 Orders: Orders Comprehensive [place]. Panel Fast 11/25/25 Z13.1 - Encounter for screening for diabetes mellitus Influenza [id number] Immunization 12/30/24 Z23 - Encounter for immunization H pylori Ag Stool 12/30/24 K21.9 - Gastro-esophageal reflux disease without esophagitis Complete Blood Count no Diff 12/30/24 Z13.1 - Encounter for screening for diabetes mellitus Medications: New omeprazole 20 mg PO DAILY 30 caps 1RF 30 days K21.9 - Gastro-esophageal reflux disease without esophagitis Refilled albuterol sulfate 90 mcg/actuation (Ventolin HFA) 1 inh inhalation QID PRN 6.7 grams 1RF shortness of breath or wheezing J45.21 - Mild intermittent asthma with (acute) exacerbation
[2024-12-30 13:39] VITALS: BP 120/68; PULSE 72; TEMP 36.3; O2SAT 98; BMI 22.1
== END 2024-12-30 14:16 | disposition home or self-care (01) ==
LOC: HO.HMCH 13:33
PROVIDERS: PCP Physician Assistant; Visit Provider Physician Assistant
DX: Z23 Encounter for immunization (principal)

== ENCOUNTER → 2024-12-30 13:32 | Outpatient (BNVA) | payer MEDICARE, MEDICAID, SELFPAY | PROVIDERS: PCP Physician Assistant; Visit Provider Physician Assistant | DX: Z00.00 Encounter for general adult medical examination without abnormal findings (principal); K21.9 Gastro-esophageal reflux disease without esophagitis; J45.21 Mild intermittent asthma with (acute) exacerbation; F33.0 Major depressive disorder, recurrent, mild; Z13.31 Encounter for screening for depression; Z13.39 Encounter for screening examination for other mental health and behavioral disorders; Z23 Encounter for immunization | CPT/HCPCS: 90471; 90656; 96127; 99395 ==

== ENCOUNTER 2025-01-10 12:07 | Outpatient (AMB) | payer MEDICARE, MEDICAID, SELFPAY ==
--- NOTE | 2025-01-10 12:15 | AM.OFFWIN_ITS ---
Intake Vital Signs 01/10/25 12:17 Height 5 ft 10 in BMI Reason not done Patient refused/unable BP 120/80 Blood Pressure Location Lt brachial Position Sitting Pulse 101 H Pulse Source Pulse Oximeter Temp 98.1 F Temp Source Oral Pulse Oximetry (%) 98 Intake Visit Reasons: EP Left ear blocked, congestion, sore throat Patient Tobacco Use Status: Never used Tobacco Allergies No Known Allergies Allergy (Verified 01/10/25 12:18) Do you need a note to return to daycare/school/sports/work: No HPI HPI Comments History of Present Illness Details This is a 24-year-old male who presented to the walk-in clinic complaining of viral URI symptoms x4 days. Patient reports nasal congestion and rhinorrhea with green nasal discharge, chest congestion and cough with green sputum production, wheezing and mild shortness of breath with exertion, and bilateral otalgia. He denies any fevers or chills. He does report positive sick contact with his nieces who have similar symptoms. He does report a history of mild intermittent asthma. [facility] Medical History (Updated 12/31/24 @ 07:23 by Edson Shaw PA-C) Acute erythematous tonsillitis Acute infective otitis externa of left ear No known health problems Surgical History No pertinent past surgical history Family History Father No problems noted. Social History (Updated 12/30/24 @ 13:49 by Edson Shaw PA-C) Household Members: Family Housing: Apartment Alcohol intake: never Patient Tobacco Use Status: Never used Tobacco e-Cigarette/Vaping Use: Never Used Second Hand Smoke Exposure: No Substance Use Type: Marijuana service: No Current occupational status: employed Current occupation: [employer] Cognitive needs: No Hearing needs: No Vision needs: No Review of Systems Const All systems reviewed & are unremarkable except as noted in HPI and below Reports no additional complaints Eyes Reports no additional complaints ENT Reports no additional complaints Card Reports no additional complaints Resp Reports no additional complaints GI Reports no additional complaints Reports no additional complaints Musc Reports no additional complaints Skin/Breast Reports system reviewed and no additional complaints, except as documented Neuro Reports no additional complaints Psych Reports no additional complaints Endo Reports no additional complaints Marky/Lymph Reports no additional complaints Aller/Immun Reports no additional complaints Physical Exam Exam Exam: Vital signs reviewed. Constitutional: Non-toxic appearing. No acute distress. Well-developed and well-nourished. HEENT: Normocephalic and atraumatic. PERRL/EOMI. Bilateral tympanic membranes are erythematous, edematous, and bulging. Moist mucous membranes. Posterior pharyngeal erythema without exudates or edema. Skin: Warm and dry. No rashes or lesions noted. Neck: Full and painless range of motion. No cervical lymphadenopathy. Cardio: Regular rate and rhythm. No murmurs, gallops, or rubs. No lower extremity edema. No JVD. Pulmonary: No respiratory distress. No accessory muscle usage. He has scattered inspiratory and expiratory wheezing. Gastrointestinal: Soft, non-tender, and non-distended in all 4 quadrants. Musculoskeletal: Normal range of motion in joints throughout the body. No deformity or other signs of injury. Neuro: Alert and oriented x4. Cranial nerves 2-12 grossly intact. No focal deficits appreciated. Psych: Normal mood and affect. Vital Signs: Last Vital Signs Temp 98.1 F 01/10/25 12:17 Pulse 101 H 01/10/25 12:17 BP 120/80 01/10/25 12:17 Pulse Ox 98 01/10/25 12:17 Results AMB Rapid Strep AMB Rapid Strep Negative Last Edit by Vladimir Irwin CMA on 01/10/25 12 :40 Results Reviewed Results Reviewed: Laboratory Last Values Strep Scn Rapid Clinic Negative 01/10/25 12:38 Assessment & Plan Assessment & Plan (1) Acute otitis media: Code(s): H66.90 - Otitis media, unspecified, unspecified ear Qualifiers: Otitis media type: suppurative Laterality: bilateral Recurrence: non- recurrent Spontaneous tympanic membrane rupture: without spontaneous rupture Qualified Code(s): H66.003 - Acute suppurative otitis media without spontaneous rupture of ear drum, bilateral (2) Acute bronchitis: Code(s): J20.9 - Acute bronchitis, unspecified Qualifiers: Bronchitis organism: unspecified organism Qualified Code(s): J20.9 - Acute bronchitis, unspecified Plan This is a 24-year-old male who presented to the walk-in clinic complaining of viral URI symptoms as well as cough, chest congestion, and shortness of breath x4 days. On physical examination, patient has erythema, edema, and bulging of bilateral tympanic membranes consistent with bilateral acute otitis media as well as scattered inspiratory and expiratory wheezing consistent with acute viral bronchitis. Patient was sent home on p.o. amoxicillin/clavulanate 875/125 mg twice daily x7 days for treatment of acute otitis media as well as p.o. pred nisone 40 mg daily x5 days for treatment of acute bronchitis. COVID/flu/RSV testing was sent and patient will be called with the results. Recommended symptomatic management including rest, increased fluids, advil/tylenol for pain/fever, over the counter throat lozenges/decongestants, humidification at nighttime or steam showers, and normal saline or fluticasone nasal spray. Patient advised to follow up here or go to the emergency room for worsening/persistent symptoms. Patient verbalized understanding and is agreeable with the plan. Orders: Orders AMB Rapid Strep Screen Today Z13.9 - Encounter for screening, unspecified SARS-CoV2/FLU/RSV Today J06.9 - Acute upper respiratory infection, unspecified Medications: New amoxicillin-pot clavulanate 875-125 mg 1 tab PO BID 14 tabs 0RF prednisone 40 mg (2 x 20 mg) PO DAILY 10 tabs 0RF Coding Level of Care Code Est Pt Level 3 (59314) Diagnoses Non-recurrent acute suppurative otitis media of both ears without spontaneous rupture of tympanic membranes H66.003 Otitis media type: suppurative Laterality: bilateral Recurrence: non-recurrent Spontaneous tympanic membrane rupture: without spontaneous rupture Acute bronchitis, unspecified organism J20.9 Bronchitis organism: unspecified organism
[2025-01-10 12:17] VITALS: BP 120/80; PULSE 101; TEMP 36.7; O2SAT 98
== END 2025-01-10 13:59 | disposition home or self-care (01) ==
PROVIDERS: PCP Physician Assistant; Visit Provider Physician Assistant Medical
DX: H66.003 Acute suppurative otitis media without spontaneous rupture of ear drum, bilateral (principal); J20.9 Acute bronchitis, unspecified; Z13.9 Encounter for screening, unspecified

== ENCOUNTER 2025-01-10 12:07 | Outpatient (REF) | payer MEDICARE, MEDICAID, SELFPAY ==
[2025-01-12 11:18] LABS: Resp Syncy Virus RNA Qual PCR NEGATIVE (Negative); SARS COV2 PCR INHOUSE NEGATIVE (Negative)
== END 2025-01-10 12:08 | disposition home or self-care (01) ==
LOC: HO.LNP 12:07
PROVIDERS: PCP Physician Assistant; Visit Provider Physician Assistant Medical
DX: R09.81 Nasal congestion (principal); J34.89 Other specified disorders of nose and nasal sinuses; R09.3 Abnormal sputum; R06.2 Wheezing; R06.02 Shortness of breath; H92.03 Otalgia, bilateral; R05.9 Cough, unspecified
CPT/HCPCS: 87637; 87880; 99212

== ENCOUNTER 2025-01-16 14:29 | Outpatient (REF) | payer MEDICARE, MEDICAID, SELFPAY ==
[2025-01-16 15:29] LABS: Hematocrit 48.9 % (42.0-52.0); Hemoglobin 16.2 g/dl (14.0-18.0); Mean Corpuscular HGB Conc 33.1 g/dl (31.0-36.0); Mean Corpuscular Hemoglobin 29.6 pg (27.0-33.0); Mean Corpuscular Volume 89.4 fL (80.0-98.0); NRBC Abs Auto 0.000 X10*3/uL (0.0-0.012); NRBC Pct Auto 0.0 /100WBC (0.0-0.2); Platelet Count 216 X10*3/uL (160-400); Red Blood Count 5.47 X10*6/uL (4.60-5.80); White Blood Count 8.6 X10*3/uL (4.8-10.8)
[2025-01-16 16:00] LABS: Alanine Aminotransferase 19 U/L (0-40); Albumin Level 4.7 g/dL (3.5-5.0); Alkaline Phosphatase 47 U/L (39-117); Anion Gap 12 (12-20); Aspartate Amino Transferase 23 U/L (5-37); Blood Urea Nitrogen 11 mg/dL (9-16); Calcium 9.1 mg/dL (8.4-10.2); Carbon Dioxide 29 mmol/L (22-29); Chloride 106 mmol/L (96-108); Estimated Glomerular Filt Rate > 60; Potassium 4.0 mmol/L (3.3-5.1); Sodium 143 mmol/L (135-145); Total Protein 7.3 g/dL (6.5-8.0)
[2025-01-16 23:43] LABS: CT PCR Urine DETECTED (Not Detect.); NG PCR Urine NOT DETECTED (Not Detect.)
[2025-01-17 07:25] LABS: Syphilis Screen Nonreactive (Nonreactive)
[2025-01-17 07:32] LABS: HIV Num 1 0.11 S/CO (0.00-0.99)
== END 2025-01-16 14:30 | disposition home or self-care (01) ==
LOC: HO.LAB 14:29
PROVIDERS: PCP Physician Assistant; Visit Provider Physician Assistant
DX: Z20.2 Contact with and (suspected) exposure to infections with a predominantly sexual mode of transmission (principal); Z11.4 Encounter for screening for human immunodeficiency virus [HIV]; Z13.1 Encounter for screening for diabetes mellitus
CPT/HCPCS: 80053; 85027; 86695; 86696; 86780; 87389; 87491; 87591